=== PATIENT | male | born 1950 | race Caucasian/White ===

== ENCOUNTER 2016-10-04 11:28 | Emergency (ER) | payer OTHER, MEDICARE ==
[~2016-10-04] VITALS: Ht 180.3 cm; Wt 122.0 kg
[2016-10-04] MEDS ORDERED: NS 1,000 ML IV SCH (11:34)
[2016-10-04] MEDS ORDERED: COLA100C3 PO (12:01)
[2016-10-04] MEDS ORDERED: FLOM5CAP PO (12:01)
[2016-10-04] MEDS ORDERED: CLON1TAB PO (12:01)
[2016-10-04] MEDS ORDERED: ATOR1TAB18 PO (12:01)
[2016-10-04] MEDS ORDERED: ASPI1TAB PO (12:01)
[2016-10-04] MEDS ORDERED: CYMB60CA3 PO (12:01)
[2016-10-04] MEDS ORDERED: OMEP40CA2 PO (12:01)
[2016-10-04] MEDS ORDERED: METO-346 PO (12:01)
[2016-10-04] MEDS ORDERED: PRAZ1CAP PO (12:01)
[2016-10-04] MEDS ORDERED: MULT1CHW39 PO (12:01)
[2016-10-04] MEDS ORDERED: FERR325T3 PO (12:01)
[2016-10-04] MEDS ORDERED: RANI300T PO (12:01)
[2016-10-04] MEDS ORDERED: DICL1GEL3 TD (12:01)
[2016-10-04] MEDS ORDERED: GABA-282 PO (12:01)
[2016-10-04] MEDS ORDERED: CARA1TAB2 PO (12:01)
[2016-10-04] MEDS ORDERED: PLAV75TA38 PO (12:01)
[2016-10-04 12:09] LABS: BASO % 0.5 % (0.0-1.0); EOS # 0.2 K/mm3 (0.0-0.50); EOS % 1.8 % (0.0-3.0); LARGE UNSTAINED CELL # 0.1 K/mm3 (0.0-0.4); LARGE UNSTAINED CELL % 1.4 % (0.0-4.0); LYMPH % 21.9 % (24.0-44.0); MEAN CORPUSCULAR HEMOGLOBIN 27.5 pg (27.0-33.0); MEAN CORPUSCULAR HGB CONC 32.6 g/dl (32.0-36.5); MEAN CORPUSCULAR VOLUME 84.3 fl (80.0-96.0); MONO # 0.5 K/mm3 (0.0-0.8); MONO % 5.9 % (0.0-5.0); NEUTROPHILS % 68.7 % (36.0-66.0); PLATELET COUNT, AUTOMATED 227 k/mm3 (150-450); WHITE BLOOD COUNT 8.7 K/mm3 (4.0-10.0)
[2016-10-04 12:29] LABS: ALBUMIN 3.4 GM/DL (3.2-5.2); ALKALINE PHOSPHATASE 108 U/L (45-117); ALT/SGPT 29 U/L (12-78); ANION GAP 5 MEQ/L (8-16); AST/SGOT 14 U/L (15-37); BILIRUBIN,DIRECT 0.1 MG/DL (0.0-0.2); BILIRUBIN,TOTAL 0.6 MG/DL (0.2-1.0); BLOOD UREA NITROGEN 14 MG/DL (7-18); CALCIUM LEVEL 8.5 MG/DL (8.8-10.2); CARBON DIOXIDE LEVEL 28 MEQ/L (21-32); CHLORIDE LEVEL 107 MEQ/L (98-107); CREATININE FOR GFR 0.97 MG/DL (0.70-1.30); GLOMERULAR FILTRATION RATE > 60.0 (>49); GLUCOSE, FASTING 102 MG/DL (80-110); POTASSIUM SERUM 4.3 MEQ/L (3.5-5.1); SODIUM LEVEL 140 MEQ/L (136-145); TOTAL PROTEIN 6.8 GM/DL (6.4-8.2)
--- NOTE | 2016-10-04 12:47 | REP ---
ABDOMEN AND FLAT/UPRIGHT PA CHEST, THREE VIEWS: HISTORY: Abdominal pain. A small amount of air is present in small and large intestine. A single air fluid level is present. There are no dilated loops of intestine. There is no pneumoperitoneum. The lungs are clear. The heart is upper limits or normal in size. IMPRESSION: Nonspecific bowel gas pattern. Signed by Dominik Lechuga MD 10/04/2016 01:15 P
[2016-10-04] MEDS ORDERED: ISOVUE-370 76% 100ML VIAL (Q9967) As Ordered ONE (13:06)
--- NOTE | 2016-10-04 14:00 | REP ---
CT ABDOMEN AND PELVIS WITH IV BUT WITHOUT ORAL CONTRAST: HISTORY: Abdominal pain and distension left-sided. No comparison CT studies. CT contrast dose: 100 mL of Isovue [address] FINDINGS: Preliminary digital station mechanic radiograph is unremarkable. The lung bases are essentially clear. The liver and the spleen are normal in size homogeneous in texture. There is a tiny accessory splenule. The gallbladder and the pancreas are unremarkable. There are one or two tiny calcifications in the head of the pancreas. No adrenal lesion is seen on either side. The kidneys enhance symmetrically and are morphologically intact. No renal mass or cyst is seen. There is a tiny 2-3 mm calculus in the lower pole collecting system of the right kidney. There is a 2 mm calculus in the upper pole of the left kidney. No other calculus is seen. The abdominal aorta is tortuous and calcific but not aneurysmal. No periaortic adenopathy or mass is seen. There is diverticulosis affecting the left colon without CT evidence of diverticulitis. No abdominal wall defect is seen. The urinary bladder is intact. Prostate and seminal vesicles are unremarkable. No pelvic mass or adenopathy is seen. Bone window settings show no bony destructive lesion. IMPRESSION: 1. Bilateral intrarenal nephrolithiasis without evidence of hydronephrosis. No ureteral stone. 2. Left colonic diverticulosis without CT evidence of diverticulitis. 3. Otherwise, unremarkable CT study of the abdomen and pelvis. Signed by Sathish Lundberg MD 10/04/2016 02:53 P
[2016-10-04 14:42] VITALS: BP 128/73
--- NOTE | 2016-10-05 07:19 | ECGEPIP ---
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
== END 2016-10-04 14:43 | disposition home or self-care (01) ==
LOC: M ED 12:36
DX: G89.29 Other chronic pain (principal); R10.9 Unspecified abdominal pain; I51.9 Heart disease, unspecified; I10 Essential (primary) hypertension; E66.9 Obesity, unspecified; K57.32 Diverticulitis of large intestine without perforation or abscess without bleeding; M79.7 Fibromyalgia; G62.9 Polyneuropathy, unspecified; F43.10 Post-traumatic stress disorder, unspecified; M06.9 Rheumatoid arthritis, unspecified; R94.31 Abnormal electrocardiogram [ECG] [EKG]; Z79.82 Long term (current) use of aspirin; Z79.899 Other long term (current) drug therapy; Z88.5 Allergy status to narcotic agent; Z88.0 Allergy status to penicillin; Z88.8 Allergy status to other drugs, medicaments and biological substances
CPT/HCPCS: 36415; 74022; 74177; 80048; 80076; 82550; 82553; 83690; 84484; 85025; 93005; 99285; Q9967

== ENCOUNTER 2016-12-14 11:58 | Emergency (ER) | payer OTHER, MEDICARE ==
[~2016-12-14] VITALS: Ht 180.3 cm; Wt 120.4 kg
[~2016-12-14 11:58] MED LIST: ASPI1TAB PO; ATOR80TA59 PO; CARA1TAB6 PO; CLON1TAB PO; COLA100C5 PO; CYMB60CA3 PO; DICL1GEL3 TD; FERR325T3 PO; FLOM5CAP PO; GABA-282 PO; METO-346 PO; MULT1CHW39 PO; OMEP40CA2 PO; PLAV1TAB2 PO; PRAZ1CAP PO; RANI300T PO
[2016-12-14] MEDS ORDERED: ONDANSETRON 4MG/2ML VIAL (J2405) IV ONE (13:45)
[2016-12-14] MEDS ORDERED: NS 500 ML IV ONE (13:45)
[2016-12-14] MEDS ORDERED: KETOROLAC 30 MG/ML VIAL (J1885) IV ONE (13:45)
[2016-12-14 14:28] LABS: BASO % 0.7 % (0.0-1.0); EOS # 0.3 K/mm3 (0.0-0.50); EOS % 3.8 % (0.0-3.0); LARGE UNSTAINED CELL # 0.1 K/mm3 (0.0-0.4); LARGE UNSTAINED CELL % 1.7 % (0.0-4.0); LYMPH # 3.1 K/mm3 (1.5-4.5); LYMPH % 38.5 % (24.0-44.0); MEAN CORPUSCULAR HEMOGLOBIN 27.7 pg (27.0-33.0); MEAN CORPUSCULAR HGB CONC 32.6 g/dl (32.0-36.5); MONO # 0.4 K/mm3 (0.0-0.8); MONO % 5.5 % (0.0-5.0); NEUTROPHILS # 3.8 K/mm3 (1.8-7.7); NEUTROPHILS % 49.8 % (36.0-66.0); PLATELET COUNT, AUTOMATED 228 k/mm3 (150-450); RED CELL DISTRIBUTION WIDTH 14.2 % (11.5-14.5); WHITE BLOOD COUNT 7.6 K/mm3 (4.0-10.0)
--- NOTE | 2016-12-14 14:30 | REP ---
CT ABDOMEN AND PELVIS WITHOUT IV CONTRAST: CT abdomen and pelvis performed without oral or IV contrast. Sagittal and coronal reconstruction images are performed. Visualized lung bases demonstrate a few tiny calcified granulomas on the left. Liver, gallbladder, spleen, adrenals, pancreas, and kidneys are grossly unremarkable. There does appear to be a tiny 2 to 3 mm calculus in the lower pole of the right kidney. No ureteral or bladder calculus is seen and there is no hydroureteronephrosis. There are mild atherosclerotic calcifications of the abdominal aorta without aneurysm. There is no adenopathy. There is no free air or free fluid. There is no bowel wall thickening. There is sigmoid diverticulosis without evidence of acute diverticulitis. No pelvic mass is seen. There is a small left inguinal hernia containing fat. IMPRESSION: 2 to 3 mm right intrarenal calculus inferiorly. No ureteral calculus bilaterally. No hydroureteronephrosis. Sigmoid diverticulosis without acute diverticulitis. Small left inguinal hernia contains fat. Signed by Smith Hensley MD 12/14/2016 05:13 P
[2016-12-14 15:18] LABS: ALBUMIN 3.8 GM/DL (3.2-5.2); ALBUMIN/GLOBULIN RATIO 0.97 (1.00-1.93); ALKALINE PHOSPHATASE 101 U/L (45-117); ALT/SGPT 31 U/L (12-78); ANION GAP 3 MEQ/L (8-16); AST/SGOT 24 U/L (15-37); BILIRUBIN,DIRECT < 0.1 MG/DL (0.0-0.2); BILIRUBIN,TOTAL 0.4 MG/DL (0.2-1.0); BLOOD UREA NITROGEN 13 MG/DL (7-18); CALCIUM LEVEL 9.1 MG/DL (8.8-10.2); CARBON DIOXIDE LEVEL 31 MEQ/L (21-32); CHLORIDE LEVEL 108 MEQ/L (98-107); CREATININE FOR GFR 1.01 MG/DL (0.70-1.30); GLOMERULAR FILTRATION RATE > 60.0 (>49); GLUCOSE, FASTING 92 MG/DL (80-110); POTASSIUM SERUM 4.6 MEQ/L (3.5-5.1); SODIUM LEVEL 142 MEQ/L (136-145); TOTAL PROTEIN 7.7 GM/DL (6.4-8.2)
[2016-12-14 15:42] VITALS: BP 156/64
== END 2016-12-14 15:43 | disposition home or self-care (01) ==
LOC: M ED 11:58
DX: M54.5 Low back pain (principal); Z87.442 Personal history of urinary calculi; I25.2 Old myocardial infarction; E78.00 Pure hypercholesterolemia, unspecified; I10 Essential (primary) hypertension; N40.0 Benign prostatic hyperplasia without lower urinary tract symptoms; K57.30 Diverticulosis of large intestine without perforation or abscess without bleeding; M79.9 Soft tissue disorder, unspecified; F43.10 Post-traumatic stress disorder, unspecified; K40.90 Unilateral inguinal hernia, without obstruction or gangrene, not specified as recurrent; Z79.82 Long term (current) use of aspirin; Z79.899 Other long term (current) drug therapy; Z88.5 Allergy status to narcotic agent; Z88.0 Allergy status to penicillin
CPT/HCPCS: 74176; 80048; 80076; 81001; 83690; 85025; 96361; 96374; 96375; 99283; J1885; J2405

== ENCOUNTER 2017-04-09 09:57 | Inpatient (IN) | payer OTHER ==
[~2017-04-09] VITALS: Ht 180.3 cm; Wt 118.2 kg
[2017-04-09] MEDS ORDERED: QUET1TAB7 PO (10:12)
[2017-04-09] MEDS ORDERED: SYMB16INH INH (10:12)
[2017-04-09] MEDS ORDERED: METO25TA4 PO (10:12)
[2017-04-09] MEDS ORDERED: CRES10TA32 PO (10:12)
[2017-04-09] MEDS ORDERED: MIRT45TA3 PO (10:12)
[2017-04-09] MEDS ORDERED: methylPREDNISolone INJ 125 MG/2 ML VIAL (J2930) IV ONE (11:30)
[2017-04-09 11:31] LABS: BASO % 0.2 % (0.0-1.0); EOS # 0.1 10^3/uL (0.0-0.50); EOS % 2.1 % (0.0-3.0); IMMATURE GRANULOCYTE % 0.4 % (0-0); LYMPH # 1.3 10^3/uL (1.5-4.5); LYMPH % 23.7 % (24.0-44.0); MEAN CORPUSCULAR HEMOGLOBIN 26.9 pg (27.0-33.0); MEAN CORPUSCULAR HGB CONC 31.3 g/dl (32.0-36.5); MEAN CORPUSCULAR VOLUME 85.8 fl (80.0-96.0); MONO # 0.7 10^3/uL (0.0-0.8); MONO % 13.4 % (0.0-5.0); NEUTROPHILS # 3.2 10^3/uL (1.8-7.7); NEUTROPHILS % 60.2 % (36.0-66.0); PLATELET COUNT, AUTOMATED 191 10^3/uL (150-450); RED CELL DISTRIBUTION WIDTH 14.6 % (11.5-14.5); WHITE BLOOD COUNT 5.3 10^3/uL (4.0-10.0)
[2017-04-09 11:45] LABS: ANION GAP 7 MEQ/L (8-16); BLOOD UREA NITROGEN 13 MG/DL (7-18); CALCIUM LEVEL 8.6 MG/DL (8.8-10.2); CARBON DIOXIDE LEVEL 28 MEQ/L (21-32); CHLORIDE LEVEL 106 MEQ/L (98-107); GLOMERULAR FILTRATION RATE > 60.0 (>49); GLUCOSE, FASTING 106 MG/DL (80-110); POTASSIUM SERUM 4.4 MEQ/L (3.5-5.1); SODIUM LEVEL 141 MEQ/L (136-145)
[2017-04-09] MEDS: IPRATROPIUM 0.5MG/ALBUTEROL 2.5MG INH SOL UD 3ML (DUONEB)(J7620) NEB PRN ×4 (11:47→12:08)
[2017-04-09 11:57] LABS: ABG HCO3 22.1 MEQ/L (22.0-26.0); ABG PARTIAL PRESSURE CO2 32.5 mmHg (35.0-45.0); ABG PARTIAL PRESSURE O2 61.1 mmHg (75.0-100.0); ABG STANDARD HCO3 23.6 MEQ/L (22.0-26.0); ABG TOTAL CO2 23.1 MEQ/L (23.0-31.0); ABG pH (ARTERIAL) 7.451 UNITS (7.350-7.450)
--- NOTE | 2017-04-09 12:13 | REP ---
REASON FOR EXAM: Cough and dyspnea. COMPARISON: 10/04/2016. The technique utilized in obtaining the radiograph has magnified the cardiac silhouette and accentuated the interstitial markings. The cardiomediastinal silhouette is unchanged. Note is again made of cardiomegaly and previous median sternotomy. Mild fibrotic change again seen throughout the lung maldonado with basilar predominance status quo. No acute patchy parenchymal opacities or pleural effusions have developed on this limited portable exam. There is no change in the osseous structures. IMPRESSION: No significant change from the prior exam. No evidence of acute cardiopulmonary disease. Signed by Yair Diego DO 04/09/2017 02:17 P
[2017-04-09] MEDS ORDERED: ONDANSETRON 4 MG TAB (S0181) PO PRN (13:15)
[2017-04-09] MEDS ORDERED: IPRATROPIUM 0.5MG/ALBUTEROL 2.5MG INH SOL UD 3ML (DUONEB)(J7620) NEB PRN (13:15)
[2017-04-09] MEDS ORDERED: MIRT45TA PO (13:35)
[2017-04-09] MEDS ORDERED: CARA1TAB6 PO (13:35)
--- NOTE | 2017-04-09 14:09 | HPEPDOC ---
[facility] Medical History & Physical Date of Admission Apr 09, 2017 Other Provider PCP: Aashish Kaplan MD ([facility]) Attending Physician: HAN ROMERO MD History and Physical CHIEF COMPLAINT: SOB/COUGH HISTORY OF PRESENT ILLNESS: 67yo male with history of underlying lung disease and CAD s/p CABG two years ago. Presented to ED for worsening sob/DESOUZA and intermittent productive sputum/cough and abdominal and chest tightness related to wheezing and shortness of breath. Intermittent subjective fever and chills without rigors. Denies: substernal CP, palpitations, n/v/d, weight change, lower extremity swelling. Up to date on vaccinations (flu and pneumonia vax) and unaware of any sick contacts. Was seen in ED and given multiple nebs and Iv Solumedrol. Oxygen saturations in low 80s and continued respiratory discomfort and wheeze. Hospitalist contacted for admission. PAST MEDICAL HISTORY: COPD History of UT status post CABG Hypertension Hyperlipidemia Chronic low back pain GERD BPH Depression/Anxiety PAST SURGICAL HISTORY: CABG procedure 2 years ago SOCIAL HISTORY: , lives at home with his . Quit smoking and drinking alcohol 17 years ago. Denies alcohol use. Denies recent travel or sick contacts. FAMILY HISTORY: Noncontributory ALLERGIES: Please see below. REVIEW OF SYSTEMS: CONSTITUTIONAL: Subjective fevers, chills. Denies weight loss or change in appetite. HEENT: No headache, lightheadedness, blurred or loss of vision. No difficulty with speech or swallow. CARDIOVASCULAR: No substernal chest pain, palpitations, paroxysmal nocturnal dyspnea or lower extremity edema RESPIRATORY: Intermittent productive cough, wheeze, dyspnea on exertion. See HPI. Denies hemoptysis GENITOURINARY: No dysuria, frequency, or discharge MUSCULOSKELETAL: No bone, muscle or joint pain. GASTROINTESTINAL: No Nausea, vomiting, change in appetite. Bowel movements are regular without hematochezia or melena. No bladder or bowel incontinence. SKIN: No complaint of lesions, abrasions or rashes NEUROLOGICAL: No blurred vision, headaches, paraesthesias or paralysis PSYCHIATRIC: No depression, anxiety, audiovisual hallucinations. No suicidal ideations. ENDOCRINE: Denies history of diabetes or thyroid disorder. No history of endocrine abnormalities. HEMATOLOGIC/ONCOLOGIC: no bleeding or bruising disorders. No history of VTE. LYMPHATIC: No lumps, bumps or swelling of neck, axilla or groin. No night sweats or weight loss. HOME MEDICATIONS: Please see below. PHYSICAL EXAMINATION: VITAL SIGNS: Please see below. GENERAL: NAD, A&OX3, Pleasant HEENT: PERRLA, throat clear, neck supple, no JVD CARDIOVASCULAR: RRR RESPIRATORY: Diminished with expiratory wheezing, prolonged expiratory phase. ABDOMINAL: soft, NT/ND normoactive bowel sounds EXTREMITIES: no edema/no calf tenderness NEUROLOGICAL: CN'S II-XII grossly intact PSYCHOLOGICAL: negative LABORATORY DATA: See below. IMAGING: Portal chest x-ray:No significant change from the prior exam. No evidence of acute cardiopulmonary disease. Twelve-lead EKG: sinus rhythm, ventricular rate 86 bpm and no acute T wave abnormalities. MICROBIOLOGY: Please see below. IMPRESSION: 67-year-old gentleman with worsening symptoms of dyspnea on exertion , wheeze, productive sputum for approximately a week. ED evaluation and impression is that he is having acute respiratory failure with hypoxia with little response to nebulizers and Solu-Medrol. Will need admitted for further treatment. PROBLEM LIST: 1. Acute respiratory failure with hypoxia (possibly acute bronchitis/COPD exacerbation) 2. History of UT status post CABG 3. Hypertension 4. Hyperlipidemia 5. Chronic low back pain 6. GERD 7. BPH 8. Depression/Anxiety PLAN: Admit to [facility] remote telemetry. Continue with IV Solu-Medrol twice a day, duo nebs, and Zithromax. A cappella per respiratory therapy. Influenza A and B are negative. Blood cultures and sputum cultures are pending. Continue with home medications as outlined. DVT PROPHYLAXIS: Lovenox DISPOSITION: Anticipate that he'll be hospitalized greater than 2 midnights. Vital Signs Vital Signs Date Time Temp Pulse Resp B/P (MAP) Pulse Ox O2 Delivery O2 Flow Rate FiO2 04/09/17 12:28 20 135/64 (87) 04/09/17 12:27 102 93 04/09/17 10:37 Room Air 04/09/17 09:59 97.5 Laboratory Data Labs 24H Laboratory Tests 2 04/09/17 10:33: Immature Granulocyte % (Auto) 0.4H, White Blood Count 5.3, Red Blood Count 4.99 , Hemoglobin 13.4L, Hematocrit 42.8, Mean Corpuscular Volume 85.8, Mean Corpuscular Hemoglobin 26.9L, Mean Corpuscular Hemoglobin Concent 31.3L, Red Cell Distribution Width 14.6H, Platelet Count 191, Neutrophils (%) (Auto) 60.2, Lymphocytes (%) (Auto) 23.7L, Monocytes (%) (Auto) 13.4H, Eosinophils (%) (Auto ) 2.1, Basophils (%) (Auto) 0.2, Neutrophils # (Auto) 3.2, Lymphocytes # (Auto) 1.3L, Monocytes # (Auto) 0.7, Eosinophils # (Auto) 0.1, Basophils # (Auto) 0.0, Immature Granulocyte # (Auto) 0.0, Nucleated Red Blood Cells % (auto) 0.0, Anion Gap 7L, Glomerular Filtration Rate > 60.0, Lactic Acid Level 0.9, Blood Urea Nitrogen 13, Creatinine 1.10, Sodium Level 141, Potassium Level 4.4, Chloride Level 106, Carbon Dioxide Level 28, Calcium Level 8.6L, Total Creatine Kinase 213, Creatine Kinase MB 1.0, Creatine Kinase MB Relative Index 0.46, Troponin I < 0.02 04/09/17 11:31: Blood Gas Bicarbonate Standard 23.6, Arterial Blood pH 7.451H, Arterial Blood Partial Pressure CO2 32.5L, Arterial Blood Partial Pressure O2 61.1L, Arterial Blood Total CO2 23.1, Arterial Blood HCO3 22.1, Arterial Blood Base Excess -1.0 , Arterial Blood Oxygen Saturation 93.1L CBC/BMP Laboratory Tests 04/09/17 10:33 Red Blood Count 4.99, Mean Corpuscular Volume 85.8, Mean Corpuscular Hemoglobin 26.9 L, Mean Corpuscular Hemoglobin Concent 31.3 L, Red Cell Distribution Width 14.6 H, Neutrophils (%) (Auto) 60.2, Lymphocytes (%) (Auto) 23.7 L, Monocytes (% ) (Auto) 13.4 H, Eosinophils (%) (Auto) 2.1, Basophils (%) (Auto) 0.2, Neutrophils # (Auto) 3.2, Lymphocytes # (Auto) 1.3 L, Monocytes # (Auto) 0.7, Eosinophils # (Auto) 0.1, Basophils # (Auto) 0.0, Calcium Level 8.6 L, Total Creatine Kinase 213 Microbiology Microbiology 04/09/17 Blood Culture, Received Pending 04/09/17 Blood Culture, Received Pending 04/09/17 Gram Stain, Received Pending 04/09/17 Sputum Culture, Received Pending 04/09/17 Influenza Virus Type A Antigen - Final, Complete 04/09/17 Influenza Virus Type B Antigen - Final, Complete Home Medications Scheduled (Multivitamin Adult) 1 Chw Chw, 1 TAB PO BID Aspirin (Aspirin 81) 81 Mg Tab, 81 MG PO DAILY Budesonide/Formoterol (Symbicort 160-4.5 Mcg/Act) 60 Puff/Inhaler Aers, 2 PUFF INH BID Docusate Sodium (Colace) 100 Mg Cap, 100 MG PO BID Duloxetine Hcl (Cymbalta) 60 Mg Cap, 60 MG PO DAILY TAKES AT NOON Ferrous Sulfate (Ferrous Sulfate) 325 Mg Tab, 325 MG PO DAILY TAKES AT NOON Metoprolol Tartrate (Metoprolol Tartrate) 25 Mg Tab, 25 MG PO BID Mirtazapine (Mirtazapine) 45 Mg Tab, 45 MG PO QHS Prazosin Hcl (Prazosin HCl) 1 Mg Cap, 1 MG PO QHS Quetiapine Fumerate (Quetiapine Fumarate) 25 Mg Tab, 25 MG PO TID Ranitidine HCl (Ranitidine HCl) 300 Mg Tab, 1 TAB PO QHS Rosuvastatin (Crestor) 10 Mg Tab, 40 MG PO DAILY TAKES AT NOON Sucralfate (Carafate) 1 Gm Tab, 1 GM PO TID Tamsulosin Hydrochloride (Flomax) 0.4 Mg Cap, 0.4 MG PO DAILY TAKES AT NOON Scheduled PRN Clonazepam (Clonazepam) 1 Mg Tab, 1 MG PO BID PRN for ANXIETY/AGITATION Gabapentin (Gabapentin) 300 Mg Cap, 300 MG PO QID PRN for PAIN Allergies Coded Allergies: Penicillins (Verified Allergy, Severe, facial swelling, cant breath, ) Propoxyphene (Verified Allergy, Severe, cant breath face swelling, 10/04/16) Hydrocodone (Verified Allergy, Unknown, flushed, 10/04/16) ROSALBA MAIER DO Apr 09, 2017 14:09
[2017-04-09] MEDS ORDERED: GABAPENTIN 300 MG CAP PO PRN (14:15)
[2017-04-09] MEDS ORDERED: clonazePAM 1 MG TAB PO PRN (14:15)
[2017-04-09] MEDS: IPRATROPIUM 0.5MG/ALBUTEROL 2.5MG INH SOL UD 3ML (DUONEB)(J7620) NEB SCH (14:30)
[2017-04-09 14:45] VITALS: BP 137/85
[2017-04-09] MEDS ORDERED: AZITHROMYCIN INJ 500 MG, VIAL MATE ADAPTER 1 EACH in D5W 250 ML IV SCH (15:00)
[2017-04-09] MEDS: QUEtiapine FUMARATE 25 MG TAB PO SCH ×2 (16:13→20:12)
[2017-04-09] MEDS: SUCRALFATE 1 GM TAB PO SCH ×2 (16:13→20:12)
[2017-04-09] MEDS: ACETAMINOPHEN TAB 650MG DOSE (2X325MG) PO PRN (17:58)
--- NOTE | 2017-04-09 18:10 | ECGEPIP ---
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
[2017-04-09] MEDS: PRAZOSIN 1 MG CAP PO SCH (20:11)
[2017-04-09] MEDS: DOCUSATE SODIUM 100 MG CAP PO SCH (20:12)
[2017-04-09] MEDS: MIRTAZAPINE 15 MG TAB PO SCH (20:12)
[2017-04-09] MEDS: FAMOTIDINE 20 MG TAB PO SCH (20:12)
[2017-04-09] MEDS: METOPROLOL TART 25 MG TABLET PO SCH (20:13)
[2017-04-09] MEDS: SYMBICORT 160/4.5MCG INHALER 6GM INH SCH (21:00)
[2017-04-09 22:00] VITALS: BP 133/83
[2017-04-10] MEDS ORDERED: methylPREDNISolone INJ 125 MG/2 ML VIAL (J2930) IV SCH
[2017-04-10] MEDS: IPRATROPIUM 0.5MG/ALBUTEROL 2.5MG INH SOL UD 3ML (DUONEB)(J7620) NEB SCH ×3 (00:18→15:46)
[2017-04-10 05:43] LABS: MEAN CORPUSCULAR HEMOGLOBIN 26.9 pg (27.0-33.0); MEAN CORPUSCULAR HGB CONC 31.9 g/dl (32.0-36.5); MEAN CORPUSCULAR VOLUME 84.3 fl (80.0-96.0); PLATELET COUNT, AUTOMATED 204 10^3/uL (150-450); RED CELL DISTRIBUTION WIDTH 14.5 % (11.5-14.5); WHITE BLOOD COUNT 5.5 10^3/uL (4.0-10.0)
[2017-04-10 05:57] LABS: ANION GAP 10 MEQ/L (8-16); BLOOD UREA NITROGEN 18 MG/DL (7-18); CALCIUM LEVEL 8.8 MG/DL (8.8-10.2); CARBON DIOXIDE LEVEL 23 MEQ/L (21-32); CHLORIDE LEVEL 110 MEQ/L (98-107); CREATININE FOR GFR 1.18 MG/DL (0.70-1.30); GLOMERULAR FILTRATION RATE > 60.0 (>49); GLUCOSE, FASTING 180 MG/DL (80-110); POTASSIUM SERUM 4.2 MEQ/L (3.5-5.1); SODIUM LEVEL 143 MEQ/L (136-145)
[2017-04-10 06:00] VITALS: BP 131/67
[2017-04-10] MEDS: SYMBICORT 160/4.5MCG INHALER 6GM INH SCH ×2 (07:11→19:53)
[2017-04-10] MEDS: QUEtiapine FUMARATE 25 MG TAB PO SCH ×3 (08:54→21:13)
[2017-04-10] MEDS: SUCRALFATE 1 GM TAB PO SCH ×3 (08:54→21:12)
[2017-04-10] MEDS: ROSUVASTATIN 10 MG TAB (CRESTOR) PO SCH (08:54)
[2017-04-10] MEDS: ASPIRIN 81 MG ENTERIC TAB PO SCH (08:54)
[2017-04-10] MEDS: TAMSULOSIN 0.4 MG CAP PO SCH (08:55)
[2017-04-10] MEDS: DULoxetine 30 MG CAP (CYMBALTA) PO SCH (08:55)
[2017-04-10] MEDS: FERROUS SULFATE 325MG TAB PO SCH (08:55)
[2017-04-10] MEDS: DOCUSATE SODIUM 100 MG CAP PO SCH ×2 (08:55→21:12)
[2017-04-10] MEDS: METOPROLOL TART 25 MG TABLET PO SCH ×2 (08:57→21:12)
[2017-04-10] MEDS: ENOXAPARIN 40 MG/0.4 ML SYRINGE (J1650) SC SCH (08:58)
[2017-04-10] MEDS: ACETAMINOPHEN TAB 650MG DOSE (2X325MG) PO PRN (10:39)
[2017-04-10] MEDS: methylPREDNISolone INJ 125 MG/2 ML VIAL (J2930) IV SCH ×2 (12:08→23:42)
[2017-04-10 14:00] VITALS: BP 141/67
--- NOTE | 2017-04-10 14:20 | IPNPDOC ---
Text Note Date of Service The patient was seen on 04/10/17. NOTE Hospitalist Progress Note Subjective: Patient reports that he is feeling better this morning compared to yesterday, although he is not completely back to his baseline. He agrees that perhaps at least one more day of hospitalization would be ideal. He does continue to be somewhat short of breath, he denies chest heaviness or chest pressure or chest pain. He denies any fevers, chills, night sweats. The remainder of his review of systems is entirely negative. Objective: General: Awake, alert, oriented. He is sitting upright in the chair. He is in no acute distress at this time. HEENT: Head normocephalic, atraumatic, sclera are nonicteric. Hearing is grossly intact to conversation. Respiratory: Diminished throughout, however I do not appreciate any wheezes or rales Cardiovascular: Regular rate and rhythm, with no rubs, gallops, or murmur. Abdomen: Soft, nontender, nondistended, no hepatosplenomegaly appreciated. Bowel sounds present. Extremities: 2+ pulses in the radial and dorsalis pedis bilaterally. No evidence of clubbing or cyanosis. Assessment/Plan: 1. Acute respiratory failure with hypoxia Resolved. He was wearing his home CPAP during the night. He is now saturating well on room air. 2. COPD exacerbation Will decrease his steroids at this time to 40 mg every 12 hours. Given that he does not have fevers nor does he have a white count, we can discontinue his antibiotics at this time. We'll continue with DuoNeb's scheduled and as needed 3. Hypertension Within acceptable limits, continue with home dose of metoprolol tartrate. 4. Hyperlipidemia Continue home dose of rosuvastatin 5. Chronic low back pain Continue home dose of duloxetine 6. GERD Continue home dose of ranitidine 7. BPH Continue home dose of tamsulosin 8. Depression/anxiety Continue home dose of Seroquel, mirtazapine, clonazepam, duloxetine, and prazosin 9. DVT prophylaxis Lovenox My preceptor for this patient encounter was physically present in the building during the encounter and was fully available. As needed, all aspects of the patient interview, examination, medical decision making process, and medical care plan development were reviewed and approved by the preceptor. Preceptor is aware and concurs with the plan as stated in the body of this note and will attest to such by his/her cosignature. VS,Fishbone, I+O VS, Fishbone, I+O Laboratory Tests 04/10/17 05:34 Red Blood Count 4.79, Mean Corpuscular Volume 84.3, Mean Corpuscular Hemoglobin 26.9 L, Mean Corpuscular Hemoglobin Concent 31.9 L, Red Cell Distribution Width 14.5, Calcium Level 8.8 Vital Signs Date Time Temp Pulse Resp B/P (MAP) Pulse Ox O2 Delivery O2 Flow Rate FiO2 04/10/17 09:00 Room Air 96 04/10/17 08:57 108 128/86 04/10/17 06:00 97.3 20 94 I&O- Last 24 Hours up to 6 AM 04/11/17 06:00 Intake Total 250 ml Output Total 100 ml Balance 150 ml GME ATTESTATION GME ATTESTATION My faculty preceptor for this patient encounter was physically present during the encounter and was fully available. All aspects of the patient interview, examination, medical decision making process, and medical care plan development were reviewed and approved by the faculty preceptor. The faculty preceptor is aware and concurs with the plan as stated in the body of this note and will attest to such by his/her cosignature. ATTENDING NOTE I have both independently examined this patient as well as reviewed the note. I have discussed in detail with the resident the findings and plan of treatment as documented in the residents note. I will continue to follow the patient and offer further guidance to the patients care as necessary during this hospital stay. ROSELIA Perez MD, DO Apr 10, 2017 14:20 HAN ROMERO MD Apr 14, 2017 09:33
[2017-04-10] MEDS: PRAZOSIN 1 MG CAP PO SCH (21:12)
[2017-04-10] MEDS: FAMOTIDINE 20 MG TAB PO SCH (21:13)
[2017-04-10] MEDS: MIRTAZAPINE 15 MG TAB PO SCH (21:13)
[2017-04-10 22:00] VITALS: BP 159/72
[2017-04-11] MEDS: IPRATROPIUM 0.5MG/ALBUTEROL 2.5MG INH SOL UD 3ML (DUONEB)(J7620) NEB SCH ×4 (00:02→23:36)
[2017-04-11 06:00] VITALS: BP 144/76
[2017-04-11 07:17] LABS: MEAN CORPUSCULAR HEMOGLOBIN 26.9 pg (27.0-33.0); MEAN CORPUSCULAR HGB CONC 31.7 g/dl (32.0-36.5); MEAN CORPUSCULAR VOLUME 84.8 fl (80.0-96.0); PLATELET COUNT, AUTOMATED 203 10^3/uL (150-450); RED CELL DISTRIBUTION WIDTH 14.6 % (11.5-14.5); WHITE BLOOD COUNT 6.3 10^3/uL (4.0-10.0)
[2017-04-11 07:29] LABS: ANION GAP 9 MEQ/L (8-16); BLOOD UREA NITROGEN 24 MG/DL (7-18); CALCIUM LEVEL 8.8 MG/DL (8.8-10.2); CARBON DIOXIDE LEVEL 25 MEQ/L (21-32); CHLORIDE LEVEL 108 MEQ/L (98-107); CREATININE FOR GFR 1.03 MG/DL (0.70-1.30); GLOMERULAR FILTRATION RATE > 60.0 (>49); GLUCOSE, FASTING 142 MG/DL (80-110); POTASSIUM SERUM 4.6 MEQ/L (3.5-5.1); SODIUM LEVEL 142 MEQ/L (136-145)
[2017-04-11] MEDS: SYMBICORT 160/4.5MCG INHALER 6GM INH SCH ×2 (07:29→20:10)
[2017-04-11] MEDS ORDERED: VANCOMYCIN HCL 500 MG in D5W MINI-BAG PLUS 100 ML IV ONE (08:00)
[2017-04-11] MEDS: SUCRALFATE 1 GM TAB PO SCH ×3 (08:29→21:00)
[2017-04-11] MEDS: ENOXAPARIN 40 MG/0.4 ML SYRINGE (J1650) SC SCH (08:29)
[2017-04-11] MEDS: DOCUSATE SODIUM 100 MG CAP PO SCH ×2 (08:29→20:45)
[2017-04-11] MEDS: ASPIRIN 81 MG ENTERIC TAB PO SCH (08:29)
[2017-04-11] MEDS: DULoxetine 30 MG CAP (CYMBALTA) PO SCH (08:29)
[2017-04-11] MEDS: ROSUVASTATIN 10 MG TAB (CRESTOR) PO SCH (08:29)
[2017-04-11] MEDS: METOPROLOL TART 25 MG TABLET PO SCH ×2 (08:29→20:46)
[2017-04-11] MEDS: QUEtiapine FUMARATE 25 MG TAB PO SCH ×3 (08:29→20:46)
[2017-04-11] MEDS: FERROUS SULFATE 325MG TAB PO SCH (08:29)
[2017-04-11] MEDS: TAMSULOSIN 0.4 MG CAP PO SCH (08:29)
--- NOTE | 2017-04-11 08:35 | PHACANCOPD ---
PHARMACY VANCOMYCIN DOSING Pt Demographics Demographics Patient Age:67 , Weight:118.200 , Gender: male Adjusted Body Weight Date: 04/11/17, Adjusted Body Weight: Kg Events Past 24 Hours Events Past 24 Hours: NO: Dialysis, Diuretic Therapy, Change in CrCl, Fever, Elevation in WBC, Pending Diagnostics, Pending Procedures, Other Vancomycin Vancomycin indication: BACTEREMIA Vancomycin Target Ranges: 10-20 mcg/ml Vancomycin Load Y/N: Yes Load Dose Date Time Vancomycin Load Dose: 1500MG Date: 04/11/17 Time: 0800 Vancomycin Dose Date: 04/11/17. Current Vancomycin Dose: [1GM IV Q8H @ 0900] Intermittent Dosing?: No Labs Labs Item Value Date Time Creatinine 1.10 MG/DL 04/09/17 1033 Creatinine 1.18 MG/DL 04/10/17 0534 Creatinine 1.03 MG/DL 04/11/17 0649 White Blood Count 5.3 10^3/uL 04/09/17 1033 White Blood Count 5.5 10^3/uL 04/10/17 0534 White Blood Count 6.3 10^3/uL 04/11/17 0649 Micro Microbiology 04/11/17 Blood Culture, Received Pending 04/09/17 Blood Culture - Preliminary, Resulted No growth after 24 hours . All specim... 04/09/17 Blood Culture - Preliminary, Resulted 04/09/17 Gram Stain - Final, Resulted 04/09/17 Sputum Culture, Resulted Pending 04/09/17 Influenza Virus Type A Antigen - Final, Complete 04/09/17 Influenza Virus Type B Antigen - Final, Complete Creatinine Clearance Date:04/11/17. Creatinine Clearance: [74MLS/MIN]. Pending Labs VANCO TROUGH 04/12/17 @ 0800 Assessment and Plan Maintaining Current Dose?: Yes Reason for dose change: No Dose Change Pharmacist Note Pharmacist Note Date: 04/11/17. Pharmacist note: Vanco 1.5 gram loading dose was initiated @ 0800 followed by 1g iv q8 hours for the treatment of bacteremia. Preliminary blood culture produced gram positive cocci in clusters. Trough is scheduled to be drawn prior to the 4th dose (04/12/17 @ 0800). Continue to monitor renal function and adjust dose as needed. RUPERT MUHAMMAD [facility]ARMAC[facility] Apr 11, 2017 08:35
[2017-04-11] MEDS: VANCOMYCIN HCL 1,000 MG, VIAL MATE ADAPTER 1 EACH in D5W 250 ML IV SCH ×2 (10:20→17:22)
[2017-04-11] MEDS: methylPREDNISolone INJ 125 MG/2 ML VIAL (J2930) IV SCH (12:53)
--- NOTE | 2017-04-11 13:56 | IPNPDOC ---
Text Note Date of Service The patient was seen on 04/11/17. NOTE Hospitalist Progress Note Subjective: The patient has been up and walking about this morning, he still has some shortness of breath. He does continue to cough, but is unable to expectorate the sputum, therefore he just swallows it. He denies any fevers, chills, nausea , vomiting, chest pain. The remainder of his review of systems is negative. He is accompanied in the room by his current today. Objective: General: Awake, alert, oriented. He is in no acute distress at this time. HEENT: Head normocephalic, atraumatic, sclera are nonicteric. Hearing is grossly intact to conversation. Respiratory: Much better air movement today, although he does have have a minimal amount of expiratory wheezing today Cardiovascular: Regular rate and rhythm, with no rubs, gallops, or murmur. Abdomen: Soft, nontender, nondistended, no hepatosplenomegaly appreciated. Bowel sounds present. Extremities: 2+ pulses in the radial and dorsalis pedis bilaterally. No evidence of clubbing or cyanosis. Assessment/Plan: Gram-positive bacteremia. One of his and tubes of blood as a preliminary report of gram-positive bacteremia, the other one is still pending. He was empirically started on IV vancomycin today. We will keep him in the hospital for at least an additional 24 hours until final results from both tubes are obtained. Acute respiratory failure with hypoxia Resolved. He was wearing his home CPAP during the night. COPD exacerbation Will decrease his steroids at this time to 40 mg Daily, and switched from IV to oral. We'll continue with DuoNeb's scheduled and as needed Hypertension Within acceptable limits, continue with home dose of metoprolol tartrate. Hyperlipidemia Continue home dose of rosuvastatin Chronic low back pain Continue home dose of duloxetine GERD Continue home dose of ranitidine BPH Continue home dose of tamsulosin Depression/anxiety Continue home dose of Seroquel, mirtazapine, clonazepam, duloxetine, and prazosin DVT prophylaxis Lovenox My preceptor for this patient encounter was physically present in the building during the encounter and was fully available. As needed, all aspects of the patient interview, examination, medical decision making process, and medical care plan development were reviewed and approved by the preceptor. Preceptor is aware and concurs with the plan as stated in the body of this note and will attest to such by his/her cosignature. VS,Antoniobone, I+O VS, Fishbone, I+O Laboratory Tests 04/11/17 06:49 Red Blood Count 4.87, Mean Corpuscular Volume 84.8, Mean Corpuscular Hemoglobin 26.9 L, Mean Corpuscular Hemoglobin Concent 31.7 L, Red Cell Distribution Width 14.6 H, Calcium Level 8.8 Vital Signs Date Time Temp Pulse Resp B/P (MAP) Pulse Ox O2 Delivery O2 Flow Rate FiO2 04/11/17 08:29 81 144/76 04/11/17 06:00 97.3 20 94 Room Air 04/10/17 09:00 96 I&O- Last 24 Hours up to 6 AM 04/12/17 06:00 Intake Total 250 ml Output Total 100 ml Balance 150 ml ROSELIA ANTHONY DO Apr 11, 2017 13:56
[2017-04-11 14:00] VITALS: BP 146/80
[2017-04-11] MEDS: FAMOTIDINE 20 MG TAB PO SCH (20:45)
[2017-04-11] MEDS: PRAZOSIN 1 MG CAP PO SCH (20:46)
[2017-04-11] MEDS: MIRTAZAPINE 15 MG TAB PO SCH (20:46)
[2017-04-11 22:00] VITALS: BP 142/69
[2017-04-12] MEDS: VANCOMYCIN HCL 1,000 MG, VIAL MATE ADAPTER 1 EACH in D5W 250 ML IV SCH ×2 (01:09→08:38)
[2017-04-12 06:00] VITALS: BP 159/80
[2017-04-12] MEDS: IPRATROPIUM 0.5MG/ALBUTEROL 2.5MG INH SOL UD 3ML (DUONEB)(J7620) NEB SCH (07:44)
[2017-04-12] MEDS: SYMBICORT 160/4.5MCG INHALER 6GM INH SCH (07:44)
[2017-04-12 08:11] LABS: MEAN CORPUSCULAR HEMOGLOBIN 26.7 pg (27.0-33.0); MEAN CORPUSCULAR HGB CONC 31.6 g/dl (32.0-36.5); MEAN CORPUSCULAR VOLUME 84.5 fl (80.0-96.0); PLATELET COUNT, AUTOMATED 216 10^3/uL (150-450); RED CELL DISTRIBUTION WIDTH 14.4 % (11.5-14.5); WHITE BLOOD COUNT 7.8 10^3/uL (4.0-10.0)
[2017-04-12 08:36] LABS: ANION GAP 8 MEQ/L (8-16); BLOOD UREA NITROGEN 23 MG/DL (7-18); CALCIUM LEVEL 8.4 MG/DL (8.8-10.2); CARBON DIOXIDE LEVEL 27 MEQ/L (21-32); CHLORIDE LEVEL 105 MEQ/L (98-107); CREATININE FOR GFR 1.04 MG/DL (0.70-1.30); GLOMERULAR FILTRATION RATE > 60.0 (>49); GLUCOSE, FASTING 90 MG/DL (80-110); SODIUM LEVEL 140 MEQ/L (136-145)
[2017-04-12] MEDS: ENOXAPARIN 40 MG/0.4 ML SYRINGE (J1650) SC SCH (08:38)
[2017-04-12] MEDS: SUCRALFATE 1 GM TAB PO SCH (08:38)
[2017-04-12] MEDS: ASPIRIN 81 MG ENTERIC TAB PO SCH (08:38)
[2017-04-12] MEDS: QUEtiapine FUMARATE 25 MG TAB PO SCH (08:38)
[2017-04-12] MEDS: DULoxetine 30 MG CAP (CYMBALTA) PO SCH (08:38)
[2017-04-12] MEDS: FERROUS SULFATE 325MG TAB PO SCH (08:38)
[2017-04-12] MEDS: DOCUSATE SODIUM 100 MG CAP PO SCH (08:38)
[2017-04-12 08:39] VITALS: BP 159/80
[2017-04-12] MEDS: ROSUVASTATIN 10 MG TAB (CRESTOR) PO SCH (08:39)
[2017-04-12] MEDS: TAMSULOSIN 0.4 MG CAP PO SCH (08:39)
[2017-04-12] MEDS: METOPROLOL TART 25 MG TABLET PO SCH (08:39)
[2017-04-12] MEDS ORDERED: PRED10TA2 PO (08:59)
[2017-04-12] MEDS ORDERED: predniSONE 20 MG TAB PO SCH (09:00)
--- NOTE | 2017-04-12 21:57 | DS.PDOC ---
Discharge Summary General Date of Admission Apr 09, 2017 at 13:13 Date of Discharge 04/12/2017 Discharge Summary PRIMARY CARE PHYSICIAN: Dr. Kaplan in the [facility] ATTENDING AT TIME OF DISCHARGE: Dr. Garcia DISCHARGE DIAGNOS(E)S: 1. Acute respiratory failure with hypoxia 2. COPD exacerbation 3. Hypertension 4. Hyperlipidemia 5. Chronic low back pain 6. GERD 7. Benign prostatic hypertrophy 8. Depression/anxiety HPI & HOSPITAL COURSE: Mr. Goodrich is a 67-year-old male who presented to the emergency department for worsening shortness of breath and dyspnea on exertion with intermittent productive cough, as well as chest tightness and wheezing. He was treated with [id number] and as needed nebulizers, steroids, and he was treated with a dose of azithromycin, however this was discontinued given the fact that he had no leukocytosis or fever and he showed remarkable improvement. One of his blood cultures did come back with a preliminary positive for gram- positive cocci in clusters, therefore he was started empirically on vancomycin IV, however this did come back as a contaminant of staph hominis, and the other tube showed no growth. Steroids were tapered throughout his stay. On today the day of discharge she is feeling significantly better, his wheezing is almost entirely resolved, and he has been walking about the floor with only minimal exertional dyspnea, and not at rest. He does continue to cough, however it is nonproductive, and it is significantly improved from admission. Remainder of his review of systems is negative. He does appear to be stable for discharge at this time. PHYSICAL EXAMINATION ON DISCHARGE: GENERAL: Awake, alert, oriented 3. He is in no acute distress. He is not using any accessory muscles for respiration. CARDIOVASCULAR EXAMINATION: Regular rate and rhythm, with no rubs, gallops, or murmur. RESPIRATORY EXAMINATION: Clear to auscultation bilaterally with no wheezes, rales, or rhonchi. ABDOMINAL EXAMINATION: Soft, nontender, nondistended. Bowel sounds present. EXTREMITIES: No clubbing or edema noted. 2+ pulses in the radial bilaterally. DISPOSITION: Home DISCHARGE INSTRUCTIONS: Follow-up with primary care provider Dr. Kaplan at the [facility] in [place] within the next 7-10 days. If symptoms return, or if you experience worsening of your symptoms, please call your doctor or return to the emergency department. DISCHARGE MEDICATIONS: He has been discharged home with a steroid taper 40 mg 3 days, 30 mg 3 days, 20 mg 3 days, 10 mg 3 days. Stop. Otherwise no changes to his home indications ITEMS THAT NEED OUTPATIENT FOLLOWUP: No labs or studies are pending at this time. My preceptor for this patient encounter was physically present in the building during the encounter and was fully available. As needed, all aspects of the patient interview, examination, medical decision making process, and medical care plan development were reviewed and approved by the preceptor. Preceptor is aware and concurs with the plan as stated in the body of this note and will attest to such by his/her cosignature. Vital Signs/I&Os Vital Signs Date Time Temp Pulse Resp B/P (MAP) Pulse Ox O2 Delivery O2 Flow Rate FiO2 04/12/17 10:30 Room Air 04/12/17 08:39 91 159/80 04/12/17 06:00 97.1 20 91 04/10/17 09:00 96 I&O- Last 24 Hours up to 6 AM 04/13/17 06:00 Intake Total 840 ml Output Total 475 ml Balance 365 ml Laboratory Data Labs 24H Laboratory Tests 2 04/12/17 08:00: Nucleated Red Blood Cells % (auto) 0.0, Anion Gap 8, Glomerular Filtration Rate > 60.0, Blood Urea Nitrogen 23H, Creatinine 1.04, Sodium Level 140, Potassium Level 4.0, Chloride Level 105, Carbon Dioxide Level 27, Calcium Level 8.4L, Vancomycin Level Trough 13.6 CBC/BMP Laboratory Tests 04/12/17 08:00 Red Blood Count 5.09, Mean Corpuscular Volume 84.5, Mean Corpuscular Hemoglobin 26.7 L, Mean Corpuscular Hemoglobin Concent 31.6 L, Red Cell Distribution Width 14.4, Calcium Level 8.4 L Microbiology Microbiology 04/11/17 Blood Culture - Preliminary, Resulted No growth after 24 hours . All specim... 04/09/17 Blood Culture - Preliminary, Resulted No Growth after 72 hours. All specime... 04/09/17 Blood Culture - Final, Complete Staphylococcus Hominis Ssp Sebas 04/11/17 MRSA Screen - Final, Complete 04/09/17 Gram Stain - Final, Complete 04/09/17 Sputum Culture - Final, Complete Haemophilus Parahaemolyticus 04/09/17 Influenza Virus Type A Antigen - Final, Complete 04/09/17 Influenza Virus Type B Antigen - Final, Complete Discharge Medications Scheduled (Multivitamin Adult) 1 Chw Chw, 1 TAB PO BID, (Reported) Aspirin (Aspirin 81) 81 Mg Tab, 81 MG PO DAILY, (Reported) Budesonide/Formoterol (Symbicort 160-4.5 Mcg/Act) 60 Puff/Inhaler Aers, 2 PUFF INH BID, (Reported) Docusate Sodium (Colace) 100 Mg Cap, 100 MG PO BID, (Reported) Duloxetine Hcl (Cymbalta) 60 Mg Cap, 60 MG PO DAILY, (Reported) TAKES AT NOON Ferrous Sulfate (Ferrous Sulfate) 325 Mg Tab, 325 MG PO DAILY, (Reported) TAKES AT NOON Metoprolol Tartrate (Metoprolol Tartrate) 25 Mg Tab, 25 MG PO BID, (Reported) Mirtazapine (Mirtazapine) 45 Mg Tab, 45 MG PO QHS, (Reported) Prazosin Hcl (Prazosin HCl) 1 Mg Cap, 1 MG PO QHS, (Reported) Prednisone (Prednisone) 10 Mg Tab, 10 MG PO TAPER Take 4 tabs daily x 3 days, then 3 tabs daily x 3 days, then 2 tabs daily x 3 days, then 1 tab daily x 3 days and stop Quetiapine Fumerate (Quetiapine Fumarate) 25 Mg Tab, 25 MG PO TID, (Reported) Ranitidine HCl (Ranitidine HCl) 300 Mg Tab, 1 TAB PO QHS, (Reported) Rosuvastatin (Crestor) 10 Mg Tab, 40 MG PO DAILY, (Reported) TAKES AT NOON Sucralfate (Carafate) 1 Gm Tab, 1 GM PO TID, (Reported) Tamsulosin Hydrochloride (Flomax) 0.4 Mg Cap, 0.4 MG PO DAILY, (Reported) TAKES AT NOON Scheduled PRN Clonazepam (Clonazepam) 1 Mg Tab, 1 MG PO BID PRN for ANXIETY/AGITATION, ( Reported) Gabapentin (Gabapentin) 300 Mg Cap, 300 MG PO QID PRN for PAIN, (Reported) Allergies Coded Allergies: Penicillins (Verified Allergy, Severe, facial swelling, cant breath, ) Propoxyphene (Verified Allergy, Severe, cant breath face swelling, 10/04/16) Hydrocodone (Verified Allergy, Unknown, flushed, 10/04/16) ROSELIA ANTHONY DO Apr 12, 2017 21:57
== END 2017-04-12 13:24 | disposition home or self-care (01) | DRG 189 ==
LOC: M ED 09:57 → M ED INP 13:13 → M MSPAV 14:41
PROVIDERS: ADMIT Hospitalist; ATTEND Internal Medicine
DX: J96.01 Acute respiratory failure with hypoxia (principal); J44.1 Chronic obstructive pulmonary disease with (acute) exacerbation; M54.5 Low back pain; I25.2 Old myocardial infarction; I10 Essential (primary) hypertension; N40.0 Benign prostatic hyperplasia without lower urinary tract symptoms; Z79.82 Long term (current) use of aspirin; Z79.899 Other long term (current) drug therapy; Z88.5 Allergy status to narcotic agent; Z88.0 Allergy status to penicillin; E78.5 Hyperlipidemia, unspecified; K21.9 Gastro-esophageal reflux disease without esophagitis; F32.9 Major depressive disorder, single episode, unspecified; F41.9 Anxiety disorder, unspecified; Z87.891 Personal history of nicotine dependence

== ENCOUNTER → 2020-03-25 | Outpatient (CLI) | payer OTHER ==
[~2020-03-25] MED LIST changes: -ASPI1TAB PO; +ASPI81TA26 PO; -CLON1TAB PO; +CLON1TAB8 PO; +CRES10TA PO; +FLOM0.4C39 PO; -FLOM5CAP PO; -GABA-282 PO; +GABA-843 PO; +LYRI150C PO; +METO25TA4 PO; +MIRT1TAB17 PO; +MIRT45TA4 PO; -MULT1CHW39 PO; +MULT200T7 PO; -OMEP40CA2 PO; +OMEP40CA97 PO; +PRED10TA2 PO; +QUET1TAB7 PO; +RANI15TA PO; +SYMB16INH INH
== END ==
LOC: M LABSMTC 10:17
PROVIDERS: ATTEND Anesthesiology
DX: Z01.812 Encounter for preprocedural laboratory examination (principal); Z20.828 Contact with and (suspected) exposure to other viral communicable diseases

== ENCOUNTER 2020-03-30 07:13 | Day surgery (SDC) | payer OTHER ==
[~2020-03-30] VITALS: Ht 175.3 cm; Wt 120.7 kg
[~2020-03-30 07:13] MED LIST changes: +propofoL 500 MG/50 ML VIAL As Ordered ONE
[2020-03-30] MEDS ORDERED: fentaNYL 100 MCG/2 ML INJECTION (J3010) As Ordered ONE (07:14)
[2020-03-30] MEDS ORDERED: ONDANSETRON 4MG/2ML VIAL As Ordered ONE (07:15)
[2020-03-30] MEDS ORDERED: NS 1,000 ML IV ONE (07:30)
--- NOTE | 2020-03-30 08:17 | ROOR ---
Patient Name: Shelton Goodrich Procedure Date: 03/30/2020 7:59 AM Date of : 1950 Age: 70 Room: [facility] Gender: Male Note Status: Finalized Procedure: Upper Endoscopy + Biopsies Indications: Heartburn, Exclusion of Cast's esophagus Providers: David Jones MD Referring MD: [facility], Admin. Requesting Provider: Medicines: Monitored Anesthesia Care Complications: No immediate complications. Procedure: Pre-Anesthesia Assessment: - The heart rate, respiratory rate, oxygen saturations, blood pressure, adequacy of pulmonary ventilation, and response to care were monitored throughout the procedure. The Endoscope was introduced through the mouth, and advanced to the second part of duodenum. The upper GI endoscopy was accomplished without difficulty. The patient tolerated the procedure well. Findings: The Z-line was irregular and was found 40 cm from the incisors. Multiple biopsies were obtained with cold forceps for evaluation to rule out Cast's Esophagus randomly at the gastroesophageal junction. A small hiatal hernia was present. No other significant abnormalities were identified in a careful examination of the stomach. The exam of the duodenum was otherwise normal. Impression: - Z-line irregular, 40 cm from the incisors. - Small hiatal hernia. - Multiple biopsies were obtained at the gastroesophageal junction. - The examination was otherwise normal. Recommendation: - Patient has a contact number available for emergencies. The signs and symptoms of potential delayed complications were discussed with the patient. Return to normal activities tomorrow. Written discharge instructions were provided to the patient. - High fiber diet. - Discharge patient to home. - Follow an antireflux regimen. - Continue present medications. - Await pathology results. - Telephone GI clinic for pathology results in 1 week. - Return to referring physician. - The findings and recommendations were discussed with the patient. Procedure Code(s): --- Professional --- 60050, Esophagogastroduodenoscopy, flexible, transoral; with biopsy, single or multiple Diagnosis Code(s): --- Professional --- K22.8, Other specified diseases of esophagus K44.9, Diaphragmatic hernia without obstruction or gangrene R12, Heartburn CPT copyright 2019 [employer]. All rights reserved. The codes documented in this report are preliminary and upon stitchdown thread laster review may be revised to meet current compliance requirements. David Jones MD David Jones MD 03/30/2020 8:16:46 AM Electronically signed by David Jones MD Number of Addenda: 0 Note Initiated On: 03/30/2020 7:59 AM Estimated Blood Loss: Estimated blood loss: none.
[2020-03-30 08:41] VITALS: BP 113/62
--- NOTE | 2020-03-30 08:47 | ROOR ---
Patient Name: Shelton Goodrich Procedure Date: 03/30/2020 8:00 AM Date of : 1950 Age: 70 Room: [facility] Gender: Male Note Status: Finalized Procedure: Total Colonoscopy to Cecum + Hot Snare Polypectomy + Hemoclips Indications: Screening for colorectal malignant neoplasm Providers: David Jones MD Referring MD: [facility], Admin. Requesting Provider: Medicines: Monitored Anesthesia Care Complications: No immediate complications. Procedure: Pre-Anesthesia Assessment: - The heart rate, respiratory rate, oxygen saturations, blood pressure, adequacy of pulmonary ventilation, and response to care were monitored throughout the procedure. The Colonoscope was introduced through the anus and advanced to the cecum, identified by appendiceal orifice and ileocecal valve. The colonoscopy was performed without difficulty. The patient tolerated the procedure well. The quality of the bowel preparation was excellent. Findings: The perianal and digital rectal examinations were normal. Non-bleeding internal hemorrhoids were found during retroflexion. The hemorrhoids were small and Grade I (internal hemorrhoids that do not prolapse). Multiple small and large-mouthed diverticula were found in the recto-sigmoid colon, sigmoid colon and descending colon. A medium polyp was found in the proximal ascending colon. The polyp was sessile. The polyp was removed with a hot snare. Resection and retrieval were complete. To prevent bleeding after the polypectomy, three hemostatic clips were successfully placed (MR conditional). There was no bleeding at the end of the procedure. The exam was otherwise without abnormality on direct and retroflexion views. Impression: - Non-bleeding internal hemorrhoids. - Diverticulosis in the recto-sigmoid colon, in the sigmoid colon and in the descending colon. - One medium polyp in the proximal ascending colon, removed with a hot snare. Resected and retrieved. Clips (MR conditional) were placed. - The examination was otherwise normal on direct and retroflexion views. - The exam was otherwise normal to the cecum. Recommendation: - Patient has a contact number available for emergencies. The signs and symptoms of potential delayed complications were discussed with the patient. Return to normal activities tomorrow. Written discharge instructions were provided to the patient. - High fiber diet. - Discharge patient to home. - Continue present medications. - Await pathology results. - Telephone GI clinic for pathology results in 1 week. - Repeat colonoscopy in 3 years for surveillance based on pathology results. - Return to referring physician. - The findings and recommendations were discussed with the patient. Procedure Code(s): --- Professional --- 17812, Colonoscopy, flexible; with removal of tumor(s), polyp(s), or other lesion(s) by snare technique Diagnosis Code(s): --- Professional --- Z12.11, Encounter for screening for malignant neoplasm of colon K64.0, First degree hemorrhoids K63.5, Polyp of colon K57.30, Diverticulosis of large intestine without perforation or abscess without bleeding CPT copyright 2019 [employer]. All rights reserved. The codes documented in this report are preliminary and upon marble machine operator review may be revised to meet current compliance requirements. David Jones MD David Jones MD 03/30/2020 8:46:52 AM Electronically signed by David Jones MD Number of Addenda: 0 Note Initiated On: 03/30/2020 8:00 AM Estimated Blood Loss: Estimated blood loss: none.
[2020-03-30] MEDS ORDERED: LIDOCAINE 2% 100MG/5ML SDV (FOR ANES.) As Ordered ONE (08:49)
[2020-03-30] MEDS ORDERED: ALBUTEROL SULFATE 2.5 MG/0.5 ML INH NEB SOLN INH ONE (09:00)
== END 2020-03-30 08:37 | disposition home or self-care (01) ==
LOC: M OPP 07:13
PROVIDERS: ATTEND Internal Medicine Gastroenterology
DX: Z12.11 Encounter for screening for malignant neoplasm of colon (principal); C18.2 Malignant neoplasm of ascending colon; K64.0 First degree hemorrhoids; K57.30 Diverticulosis of large intestine without perforation or abscess without bleeding; K22.8 Other specified diseases of esophagus; K44.9 Diaphragmatic hernia without obstruction or gangrene; R12 Heartburn; K21.9 Gastro-esophageal reflux disease without esophagitis; I25.2 Old myocardial infarction; I10 Essential (primary) hypertension; Z79.82 Long term (current) use of aspirin; Z79.891 Long term (current) use of opiate analgesic; Z79.899 Other long term (current) drug therapy; Z88.0 Allergy status to penicillin; Z88.5 Allergy status to narcotic agent; Z88.6 Allergy status to analgesic agent; Z98.61 Coronary angioplasty status; Z87.891 Personal history of nicotine dependence
CPT/HCPCS: 43239; 45385; 88305; J2405; J3010

== ENCOUNTER → 2020-04-22 | Outpatient (CLI) | payer OTHER ==
[~2020-04-22] MED LIST changes: +BUSP10TA PO; +CLON0.5T2 PO; +ISOS60TA2 PO; +LISI10TA4 PO; +MONT5TAB2 PO; +OMEP-221 PO; +PRAZ2CAP40 PO; +ROSU40TA4 PO; +TRAM50TA2 PO; +VENTAER INH; +ZETI10TA16 PO; +ZYLO300T6 PO; -propofoL 500 MG/50 ML VIAL As Ordered ONE
== END ==
LOC: M LABSMTC 09:50
PROVIDERS: ATTEND Anesthesiology
DX: Z01.812 Encounter for preprocedural laboratory examination (principal); Z20.828 Contact with and (suspected) exposure to other viral communicable diseases

== ENCOUNTER 2020-04-27 06:10 | Inpatient (IN) | payer OTHER ==
--- NOTE | 2020-04-26 22:06 | HPE ---
HISTORY AND PHYSICAL DATE OF ADMISSION: 04/27/2020 ADMITTING DIAGNOSIS: Right colon cancer. HISTORY OF PRESENT ILLNESS: The patient is a 70-year-old man being admitted on the 27 of April to undergo a right hemicolectomy for carcinoma. The patient was seen by Dr. Jones of Gastroenterology on the 05 of March. He was seen for a screening colonoscopy and because of a history of heartburn, an EGD was also scheduled. There is no family history of colorectal cancer. He underwent his scope on the 30 of March. The EGD revealed an irregular Z-line with a small hiatal hernia, but there was nothing else abnormal identified. A colonoscopy revealed some hemorrhoids. He had diverticulosis in the descending and sigmoid colon. A polyp was identified in the proximal ascending colon which was removed with a hot snare and Hemoclips were placed to prevent bleeding. The pathology returned showing moderately differentiated adenocarcinoma in the polyp of the ascending colon. The esophageal biopsy showed no evidence of intestinal metaplasia. The patient was referred to ne and is now admitted to undergo a robotic assisted laparoscopic right hemicolectomy. He is to perform a full mechanical and antibiotic bowel preparation prior to admission. ALLERGIES: 1. Penicillin. 2. Hydrocodone. MEDICATIONS: 1. Albuterol Nebulizers every 4 hours as needed. 2. Allopurinol 300 mg p.o. daily. 3. Aspirin 81 mg p.o. daily. 4. Budesonide. 5. Formoterol Fumarate Inhaler 2 puffs as needed. 6. Buspirone 10 mg p.o. daily. 7. Clonazepam one mg p.o. daily. 8. Duloxetine 50 mg p.o. daily. 9. Acetamide 10 mg p.o. daily. 10. Famotidine 20 mg daily before dinner as needed. 11. Ferrous Sulfate. 12. Flomax 0.4 mg daily at bedtime. 13. Isosorbide Mononitrate E.R. 60 mg p.o. daily. 14. Lisinopril 10 mg tablets one half tablet daily at bedtime. 15. Metoprolol Succinate E.R. 25 mg p.o. twice daily. 16. Mirtazapine 15 mg p.o. daily at noon and at bedtime. 17. Montelukast 10 mg p.o. daily in the morning. 18. Omeprazole 40 mg p.o. daily in the morning. 19. Prazosin Hydrochloride 2 mg one capsule daily at bedtime. 20. Pregabalin 75 mg p.o. twice daily. 21. Pregabalin 150 mg p.o. twice daily. 22. Quetiapine Fumarate 50 mg p.o. three times daily. 23. Rosuvastatin 40 mg once daily. 24. Carafate one gram by mouth three times daily. 25. Tramadol Hydrochloride 50 mg p.o. twice daily p.r.n. PAST MEDICAL HISTORY: The patient's past medical history is significant for: 1. Hypertension. 2. Hypercholesterolemia. 3. Depression. 4. Anxiety. 5. Coronary artery disease. 6. History of chronic obstructive pulmonary disease. 7. Asthma. 8. Obstructive sleep apnea. 9. His [facility] records suggest a diagnosis of rheumatoid arthritis. 10. Osteoarthritis. 11. Obesity. PAST SURGICAL HISTORY: The patient's past surgical history is significant for: 1. Distant tonsillectomy. 2. Left shoulder surgery in 2003. 3. Neck surgery in 2015. 4. Coronary artery bypass in 2014. 5. Inguinal hernia repair as an . FAMILY HISTORY: The patient's father succumbed to hypertension with heart disease and had cancer and his mother is from hypertension and heart disease. PERSONAL SOCIAL HISTORY: The patient is . He is a current smoker. He denies any alcohol use. REVIEW OF SYSTEMS: The patient's review of systems reveals no history of seizures, stroke or TIA. He denies any history of DVT or pulmonary embolus. He has not currently had any chest pain or palpitations. He denies chronic cough or wheezing but does have some exertional shortness of breath. He has not had any rectal bleeding, change in his bowel habits. He denies dysuria or hematuria. PHYSICAL EXAMINATION: VITAL SIGNS: Recent vital signs in the office showed a blood pressure of 156/88 with a height of 69 inches, weight of 122 kg, giving him a BMI of 40. GENERAL APPEARANCE: The patient is alert and oriented. HEENT: Sclerae are anicteric. Mucous membranes are moist. NECK: Supple without carotid bruits. HEART: Regular rate and rhythm. He has a scar from his prior coronary bypass. LUNGS: Clear bilaterally but the breath sounds are somewhat distant. ABDOMEN: Obese. There are no definite scars identified on the abdomen. He has no hernia. The abdomen is soft and nontender throughout. EXTREMITIES: No significant peripheral edema. He has palpable radial and pedal pulses. SKIN: Warm and dry. RECTAL: Digital rectal examination is not performed given his very recent colonoscopy. IMPRESSION: 1. Ascending colon cancer. 2. Atherosclerotic coronary artery disease, status post bypass. 3. Obstructive sleep apnea. 4. Morbid obesity. 5. Asthma and chronic obstructive pulmonary disease. 6. Hypertension. 7. Hyperlipidemia. 8. Anxiety and depression. 9. Ongoing tobacco use with nicotine addiction. PLAN: The patient is to perform a full mechanical and antibiotic bowel preparation at home on the 26 of April. He will be presenting to the hospital for admission on the . A right hemicolectomy to be performed laparoscopically with robotic assistance is scheduled. He was counseled in the office regarding the plans for surgery. Indications for the surgery as well as the risks and possible benefits were discussed. This includes but are not limited to bleeding, infection, scarring, adverse drug reaction, need for further surgery, injury of internal organ, anastomotic leak and hernia. He had an opportunity to ask questions and desires to proceed. He was counseled that he should anticipate a roughly 3-day hospital stay. NICOLE
[2020-04-27] VITALS (8 sets, daily range): BP systolic 122–139; BP diastolic 76–82
[~2020-04-27] VITALS: Ht 175.3 cm; Wt 118.8 kg
[~2020-04-27 06:10] MED LIST changes: -BUSP10TA PO; -CLON0.5T2 PO; -ISOS60TA2 PO; +LIDOCAINE 1% MDV 20ML VIAL SQ PRN; -LISI10TA4 PO; +LR 1,000 ML IV ONE; -MONT5TAB2 PO; -OMEP-221 PO; -PRAZ2CAP40 PO; -ROSU40TA4 PO; -TRAM50TA2 PO; -ZETI10TA16 PO; -ZYLO300T6 PO
[2020-04-27] MEDS ORDERED: BUPIVACAINE HCL 0.25% 30ML VIAL As Ordered ONE (07:12)
[2020-04-27] MEDS ORDERED: MIDAZOLAM INJ 2MG/2ML VIAL (J2250 PER 1MG) As Ordered ONE (07:22)
[2020-04-27] MEDS ORDERED: propofoL 200 MG/20 ML VIAL As Ordered ONE (07:22)
[2020-04-27] MEDS ORDERED: ONDANSETRON 4MG/2ML VIAL As Ordered ONE ×2 (07:22→10:23)
[2020-04-27] MEDS ORDERED: ROCURONIUM BROMIDE 50 MG/5 ML VIAL As Ordered ONE ×2 (07:22→10:23)
[2020-04-27] MEDS ORDERED: fentaNYL 100 MCG/2 ML INJECTION (J3010) As Ordered ONE ×2 (07:22→09:23)
[2020-04-27] MEDS ORDERED: KETOROLAC 60MG 2ML VIAL As Ordered ONE (07:22)
[2020-04-27] MEDS ORDERED: dexameTHASONE 4 MG/ML 1ML VIAL (J1100 PER 1MG) As Ordered ONE (07:22)
[2020-04-27] MEDS ORDERED: LIDOCAINE 2% 100MG/5ML SDV (FOR ANES.) As Ordered ONE (07:22)
[2020-04-27] MEDS ORDERED: SUGAMMADEX SODIUM 500 MG/5 ML VIAL (BRIDION) As Ordered ONE (07:23)
[2020-04-27] MEDS ORDERED: cefoTEtan INJ 2GM VIAL (S0074 PER 500MG) As Ordered ONE (07:36)
[2020-04-27] MEDS ORDERED: CIPROFLOXACIN/D5W 400 MG/200 ML BAG (J0744) As Ordered ONE (07:44)
[2020-04-27] MEDS ORDERED: CIPROFLOXACIN 400 MG in IV 1 EA IV ONE ×2 (07:45→20:00)
[2020-04-27] MEDS ORDERED: PHENYLEPHRINE 10MG/ML 1ML VIAL (J2370 PER 1) As Ordered ONE (08:07)
[2020-04-27] MEDS ORDERED: ACETAMINOPHEN TAB 650MG DOSE (2X325MG) PO PRN (11:45)
[2020-04-27] MEDS ORDERED: KETOROLAC 30 MG/ML 1ML VIAL IV PRN (11:45)
[2020-04-27] MEDS ORDERED: ONDANSETRON 4MG/2ML VIAL IV PRN ×2 (11:45→12:00)
[2020-04-27] MEDS ORDERED: MORPHINE 2 MG/ML 1ML VIAL (J2270) IV PRN (11:45)
[2020-04-27] MEDS ORDERED: fentaNYL 100 MCG/2 ML INJECTION (J3010) IV PRN (12:00)
[2020-04-27] MEDS ORDERED: oxyCODONE 5MG TAB PO PRN (12:00)
[2020-04-27] MEDS ORDERED: HYDROMORPHONE HCL 0.5 MG/ 0.5 ML SYRINGE (J1170 PER 1) IV PRN (12:00)
[2020-04-27] MEDS ORDERED: LR 1,000 ML IV SCH (12:00)
[2020-04-27] MEDS ORDERED: LISI10TA4 PO (12:21)
[2020-04-27] MEDS ORDERED: BUSP10TA PO (12:21)
[2020-04-27] MEDS ORDERED: ROSU40TA4 PO (12:21)
[2020-04-27] MEDS ORDERED: MONT5TAB2 PO (12:21)
[2020-04-27] MEDS ORDERED: OMEP-221 PO (12:21)
[2020-04-27] MEDS ORDERED: CLON0.5T2 PO (12:21)
[2020-04-27] MEDS ORDERED: ISOS60TA2 PO (12:21)
[2020-04-27] MEDS ORDERED: PRAZ2CAP40 PO (12:21)
[2020-04-27] MEDS ORDERED: ZETI10TA16 PO (12:21)
[2020-04-27] MEDS ORDERED: ZYLO300T6 PO (12:21)
[2020-04-27] MEDS ORDERED: TRAM50TA2 PO (12:36)
[2020-04-27] MEDS: LR 1,000 ML IV SCH (13:29)
[2020-04-27] MEDS ORDERED: metroNIDAZOLE 500 MG in IV 1 EA IV ONE (14:00)
[2020-04-27] MEDS ORDERED: ALBUTEROL 90 MCG/ACT 8GM HFA INHALER INH PRN (16:45)
[2020-04-27] MEDS ORDERED: traMADol 50 MG TAB PO PRN (16:45)
[2020-04-27] MEDS: SYMBICORT 160/4.5MCG INHALER 6GM INH SCH (20:01)
[2020-04-27] MEDS ORDERED: FAMOTIDINE 20 MG TAB PO SCH (21:00)
[2020-04-27] MEDS: ENOXAPARIN 40MG/0.4ML SYRINGE (J1650 PER 10MG) SC SCH (21:10)
[2020-04-27] MEDS: EZETIMIBE 10 MG TAB (ZETIA) PO SCH (21:11)
[2020-04-27] MEDS: PREGABALIN 75 MG CAP(LYRICA) PO SCH (21:11)
[2020-04-27] MEDS: METOPROLOL TART 25 MG TABLET PO SCH (21:12)
[2020-04-27] MEDS: busPIRone 10 MG TAB PO SCH (21:12)
[2020-04-27] MEDS: lisinopriL 5 MG TAB PO SCH (21:13)
[2020-04-27] MEDS: PRAZOSIN 1 MG CAP PO SCH (23:32)
[2020-04-28 02:00] VITALS: BP 115/63
[2020-04-28] MEDS: LR 1,000 ML IV SCH (03:37)
[2020-04-28] MEDS: KETOROLAC 30 MG/ML 1ML VIAL IV PRN ×2 (03:54→18:55)
[2020-04-28 05:56] LABS: BASO % 0.4 % (0.0-1.0); EOS # 0.1 10^3/uL (0.0-0.5); EOS % 0.7 % (0.0-3.0); HEMATOCRIT 38.4 % (42.0-52.0); HEMOGLOBIN 12.1 g/dl (13.5-17.5); LYMPH # 2.6 10^3/uL (1.5-5.0); LYMPH % 31.9 % (24.0-44.0); MEAN CORPUSCULAR HEMOGLOBIN 27.7 pg (27.0-33.0); MEAN CORPUSCULAR HGB CONC 31.5 g/dl (32.0-36.5); MEAN CORPUSCULAR VOLUME 87.9 fl (80.0-96.0); MONO # 0.9 10^3/uL (0.0-0.8); MONO % 11.1 % (0.0-5.0); NEUTROPHILS # 4.6 10^3/uL (1.5-8.5); NEUTROPHILS % 55.7 % (36.0-66.0); PLATELET COUNT, AUTOMATED 185 10^3/uL (150-450); RED BLOOD COUNT 4.37 10^6/uL (4.30-6.10); WHITE BLOOD COUNT 8.3 10^3/uL (4.0-10.0)
[2020-04-28 06:00] VITALS: BP 113/62
[2020-04-28 06:18] LABS: BLOOD UREA NITROGEN 10 MG/DL (7-18); CALCIUM LEVEL 8.2 MG/DL (8.8-10.2); CARBON DIOXIDE LEVEL 29 MEQ/L (21-32); CHLORIDE LEVEL 109 MEQ/L (98-107); CREATININE FOR GFR 0.84 MG/DL (0.70-1.30); GLOMERULAR FILTRATION RATE > 60.0 (>42); GLUCOSE, FASTING 102 MG/DL (70-100); POTASSIUM SERUM 3.9 MEQ/L (3.5-5.1); SODIUM LEVEL 143 MEQ/L (136-145)
--- NOTE | 2020-04-28 06:47 | RO ---
OPERATIVE NOTE DATE OF OPERATION: 04/27/2020 PREOPERATIVE DIAGNOSIS: Proximal ascending colon cancer. POSTOPERATIVE DIAGNOSIS: Proximal ascending colon cancer. PROCEDURE PERFORMED: Robotic-assisted laparoscopic right hemicolectomy with intracorporeal ileocolonic anastomosis. SURGEON: Shelton Sexton MD SPORT SHOE SPIKE ASSEMBLER: DO Dr. David Ariza's assistance was essential for retrieval of the specimen and closure of the midline incision. ANESTHESIA: General. INDICATIONS FOR THE PROCEDURE: The patient is a 70-year-old man who had recently undergone a colonoscopy. He was found to have a medium-sized polyp in the proximal ascending colon which was resected by the technology manager with a hot snare. Hemostatic clips were placed to close the wound. The final pathology revealed moderately differentiated adenocarcinoma and he is now for a robotic-assisted right hemicolectomy. OPERATIVE PROCEDURE: The patient was brought to the operating room and placed on the table in a supine position. TEDs and sequentials were utilized. He was placed under general endotracheal anesthesia. A Rojas catheter was inserted. The patient's abdomen was prepped and draped in a sterile fashion. 1/4% Marcaine was infiltrated at each of the trocar sites as needed. The initial trocar placement was in the high left upper quadrant. A short incision was made and a Veress needle was inserted. After a positive hanging drop test, the abdomen was inflated with carbon dioxide gas. An 8 mm port was then placed over a 5 mm scope and this was advanced through the abdominal wall without difficulty. Initial examination showed no adhesions within the abdomen. The liver appeared normal and visualized portions of the stomach and small and large bowel appeared normal. A second 8 mm port was placed roughly midline between the first port and the umbilicus. A 12 mm port was placed just above the umbilicus and a final 8 mm port was placed in the right lower quadrant. The patient was rolled slightly to the left and moved into a slight reverse Trendelenburg position. The patient cart of the da Cele XI robot was brought into position and the endoscope port was docked to the second port placed in the left upper quadrant. Targeting took place on the area of the hepatic flexure. The additional robotic arms were then docked. The SynchroSeal was placed in the left upper quadrant with a fenestrated bipolar in the supraumbilical site and grasping retractor in the right lower quadrant. I then moved to the control console to proceed with the operation. Initial inspection showed that the cecum and ascending colon were quite mobile and were folded up into the subhepatic space. The attachments to the terminal ileum were quite free and mobile as well. The greater omentum was lifted up and moved to the left and displaced above the transverse colon. The transverse colon was clearly identified. Initially I freed the appendix which was adherent to the tissues lateral to the terminal ileum using the SynchroSeal. An opening was then created through the terminal ileal mesentery and the terminal ileum was transected with a 45 mm endoscopic stapler with a blue load. I then moved to the proximal transverse colon. The superior attachments of the proximal transverse colon extending to the hepatic flexure were divided, mobilizing this inferiorly. An opening was created through the transverse through the transverse mesocolon and the colon was transected with two firings of the 45 mm stapler with blue loads. The mesentery of the transverse colon was then divided down toward its base using the SynchroSeal. Once this had been accomplished, I turned my attention back to the terminal ileal mesentery. The patient was tilted slightly further to the left and placed into a slightly stronger reverse Trendelenburg position to mobilize the small bowel away from the root of the ileal mesentery. The mesentery was then divided down to its base. Dissection was then carried superiorly. The ileocolic vascular pedicle was identified and this was divided carefully using the SynchroSeal. Excellent hemostasis was achieved. Dissection was then continued superiorly and laterally to free the attachments of the ascending colon which were actually quite limited. Finally I completed the dissection of the transverse mesocolon at its base and connected this portion of the dissection with that coming from the terminal ileum and completely freed the specimen. The specimen was then displaced into the left side of the abdomen. The operative area was irrigated and inspected and hemostasis was found to be excellent. The terminal ileum and the end of the transverse colon were then brought into apposition in the right upper quadrant. There was no tension once they were placed alongside each other. I placed a single 2-0 Vicryl suture to tack them together and elected to proceed with an intracorporeal anastomosis. A small colotomy was made with endoscopic scissors and likewise a small opening was made in the antimesenteric border of the terminal ileum. A 45 mm endoscopic stapler was used to approximate the terminal ileum and transverse colon. The residual opening was closed with a running suture of an absorbable 2-0 V-Loc suture. This was carried from superior to inferior, completely closing the opening and then was returned back superiorly to oversew the initial closure with some inverting sutures. This appeared to give a good anastomosis. A single additional 3-0 Vicryl suture was placed at the inferior edge of the anastomosis. The area was irrigated and inspected and the anastomosis appeared excellent. The robotic instruments were then removed and the patient cart was withdrawn after undocking the robot. The specimen was grasped with a grasper through the supraumbilical site. I returned to the OR table and with Dr. Hernandez's assistance, made an incision along the midline centered on the 12 mm port site. A small Manjit retractor was placed and the specimen was withdrawn through this without difficulty. I opened the specimen on the back table and identified a remaining hemoclip at the site of the polypectomy and the proximal ascending colon. There was a minimal ridge of tissue at that site but no definite residual cancer was seen. The specimen was sent for permanent pathology. The Manjit retractor was removed. The fascia at the midline was closed with interrupted simple sutures of #1 Vicryl. The subcutaneous tissues were approximated with several 3-0 Vicryls. The skin incisions were all closed with buried 4-0 Vicryl and Steri-Strips. An additional 1/4% Marcaine was infiltrated particularly at the supraumbilical site. The patient's Rojas catheter was withdrawn. He was awakened in the operating room, extubated and moved to the recovery room in stable condition. NICOLE
[2020-04-28] MEDS: SYMBICORT 160/4.5MCG INHALER 6GM INH SCH ×2 (07:25→19:11)
[2020-04-28] MEDS: OMEPRAZOLE 20 MG CAP PO SCH (09:23)
[2020-04-28] MEDS: busPIRone 10 MG TAB PO SCH ×2 (09:23→21:21)
[2020-04-28] MEDS: PREGABALIN 75 MG CAP(LYRICA) PO SCH ×2 (09:24→21:19)
[2020-04-28] MEDS: DULoxetine 30 MG CAP (CYMBALTA) PO SCH (09:24)
[2020-04-28] MEDS: TAMSULOSIN 0.4 MG CAP PO SCH (09:24)
[2020-04-28] MEDS: allopurinoL 300 MG TAB PO SCH (09:24)
[2020-04-28] MEDS: ROSUVASTATIN 10 MG TAB (CRESTOR) PO SCH (09:24)
[2020-04-28] MEDS: METOPROLOL TART 25 MG TABLET PO SCH ×2 (09:25→21:22)
[2020-04-28 10:00] VITALS: BP 119/67
[2020-04-28] MEDS: ISOSORBIDE MON. (IMDUR) 60 MG XR TAB PO SCH (13:29)
[2020-04-28] MEDS: clonazePAM 0.5 MG TAB PO PRN (13:30)
[2020-04-28 14:00] VITALS: BP 122/69
[2020-04-28 18:00] VITALS: BP 126/74
[2020-04-28] MEDS: ENOXAPARIN 40MG/0.4ML SYRINGE (J1650 PER 10MG) SC SCH (21:16)
[2020-04-28] MEDS: EZETIMIBE 10 MG TAB (ZETIA) PO SCH (21:19)
[2020-04-28] MEDS: PRAZOSIN 1 MG CAP PO SCH (21:20)
[2020-04-28] MEDS: lisinopriL 5 MG TAB PO SCH (21:22)
[2020-04-28 22:00] VITALS: BP 118/62
[2020-04-29 02:00] VITALS: BP 111/69
[2020-04-29 06:00] VITALS: BP 119/73
[2020-04-29] MEDS: SYMBICORT 160/4.5MCG INHALER 6GM INH SCH ×2 (07:34→19:09)
[2020-04-29] MEDS: ROSUVASTATIN 10 MG TAB (CRESTOR) PO SCH (08:38)
[2020-04-29] MEDS: TAMSULOSIN 0.4 MG CAP PO SCH (08:38)
[2020-04-29] MEDS: PREGABALIN 75 MG CAP(LYRICA) PO SCH ×2 (08:38→21:26)
[2020-04-29] MEDS: OMEPRAZOLE 20 MG CAP PO SCH (08:38)
[2020-04-29] MEDS: busPIRone 10 MG TAB PO SCH ×2 (08:38→21:29)
[2020-04-29] MEDS: allopurinoL 300 MG TAB PO SCH (08:38)
[2020-04-29] MEDS: DULoxetine 30 MG CAP (CYMBALTA) PO SCH (08:38)
[2020-04-29] MEDS: METOPROLOL TART 25 MG TABLET PO SCH ×2 (08:41→21:31)
[2020-04-29 10:00] VITALS: BP 120/70
[2020-04-29] MEDS: ISOSORBIDE MON. (IMDUR) 60 MG XR TAB PO SCH (12:33)
[2020-04-29 14:00] VITALS: BP 106/63
[2020-04-29 16:00] VITALS: BP 106/62
--- NOTE | 2020-04-29 19:53 | IPN ---
PROGRESS NOTE DATE: 04/29/2020 HISTORY: The patient is now postop day number two from a robotic-assisted laparoscopic right hemicolectomy for a polyp-containing cancer in the proximal ascending colon. He was advanced to a regular diet yesterday. He started having bowel movements late yesterday evening and through the day today. Vital signs show that he has been afebrile over the past 24 hours. Pulse is in the 70s to low 80s and his blood pressure is excellent. Intake and output show that yesterday he had 2800 in with 2300 out. He had one bowel movement yesterday and six so far today. His oral intake today has been excellent. PHYSICAL EXAM: The patient is sitting up in a chair at the bedside finishing lunch at the time of my visit. He denies any significant pain. He is breathing easily. Heart exam shows a regular rhythm. The abdomen is obese and protuberant but soft. He has active bowel sounds. His dressings are clean and dry. PATHOLOGY: I was contacted by the pathologist today who reported that the site of the polypectomy was identified as marked by a previously placed hemoclip. There was no evidence of any residual polyp or tumor. Fifteen lymph nodes were identified that were all benign. IMPRESSION: The patient is doing very well two days postop from his right hemicolectomy. Pathology revealed no residual cancer. PLAN: I anticipate that the patient will be ready for discharge tomorrow. He has been having several bowel movements today and as his diet has been converted to regular, I anticipate these will become more solid and infrequent. He has been able to ambulate without difficulty. He knows to anticipate discharge tomorrow. NICOLE
[2020-04-29] MEDS: ENOXAPARIN 40MG/0.4ML SYRINGE (J1650 PER 10MG) SC SCH (21:25)
[2020-04-29] MEDS: PRAZOSIN 1 MG CAP PO SCH (21:29)
[2020-04-29] MEDS: lisinopriL 5 MG TAB PO SCH (21:30)
[2020-04-29] MEDS: EZETIMIBE 10 MG TAB (ZETIA) PO SCH (21:31)
[2020-04-29 22:00] VITALS: BP 115/62
[2020-04-30 06:00] VITALS: BP 113/61
[2020-04-30] MEDS: TAMSULOSIN 0.4 MG CAP PO SCH (07:27)
[2020-04-30] MEDS: PREGABALIN 75 MG CAP(LYRICA) PO SCH (07:27)
[2020-04-30] MEDS: ROSUVASTATIN 10 MG TAB (CRESTOR) PO SCH (07:29)
[2020-04-30] MEDS: OMEPRAZOLE 20 MG CAP PO SCH (07:31)
[2020-04-30] MEDS: DULoxetine 30 MG CAP (CYMBALTA) PO SCH (07:32)
[2020-04-30 07:33] VITALS: BP 121/71
[2020-04-30] MEDS: METOPROLOL TART 25 MG TABLET PO SCH (07:33)
[2020-04-30] MEDS: busPIRone 10 MG TAB PO SCH (07:34)
[2020-04-30] MEDS: allopurinoL 300 MG TAB PO SCH (07:34)
[2020-04-30] MEDS: clonazePAM 0.5 MG TAB PO PRN (07:38)
[2020-04-30] MEDS: SYMBICORT 160/4.5MCG INHALER 6GM INH SCH (08:08)
[2020-04-30 10:00] VITALS: BP 135/74
--- NOTE | 2020-04-30 12:07 | IPN ---
PROGRESS NOTE DATE: 04/30/2020 HISTORY: Patient is now postoperative day #3 from a robotic-assisted laparoscopic right hemicolectomy for a cancer-containing polyp of the proximal ascending colon. His final pathology revealed no residual cancer with negative nodes. Vital signs show that he has been afebrile over the past 24 hours. His pulse is in the 70s and low 80s, and his blood pressure is excellent. Room air oxygen saturations are fine. Intake and output show that he had 4100 mL in yesterday with 1600 of urine output recorded. He had eight bowel movements yesterday described as loose, and last evening he was reported to have multiple liquid blood-stained bowel movements. The patient reports that the bowel movements are seemingly less bloody today and developing some consistency. PHYSICAL EXAMINATION: Patient is up walking in his room and sitting in a chair when I came in. He is comfortable and alert. He denies any significant pain. Heart exam shows a regular rate and rhythm, and he is not tachycardic. The lungs are clear. The abdomen is obese but soft. He has active bowel sounds. His incisions are all clean and dry with no evidence of infection. IMPRESSION: Patient is doing very well postoperative day #3 from his right hemicolectomy. He did have some blood in his liquid stools overnight, but he reports that this seems to have diminished or resolved, and his bowel movements are becoming somewhat more formed. PLAN: Patient will be discharged home today. He will take a regular diet as tolerated. He can shower as desired. I will not provide him with any new prescriptions, and he requires no prescription pain medications. I advised him to monitor for any further bleeding with his bowel movements and to contact my office if this seems excessive. He should call the office on Monday to arrange a followup in 2 weeks with me. He should call sooner for any problems. NICOLE
--- NOTE | 2020-04-30 13:53 | IPN ---
PROGRESS NOTE DATE: 04/28/2020 SUBJECTIVE: The patient is now postop day #1 from a robotic-assisted laparoscopic right hemicolectomy for a small cancer-containing polyp of the proximal ascending colon. His surgical specimen showed a single remaining HemoClip marking the site of his cancer, but there appeared only to be a small scar with no definite gross tumor remaining. The patient has had no nausea or vomiting. He reports a minimal amount of flatus, but no bowel movement yet. He does feel somewhat distended. OBJECTIVE: VITAL SIGNS: Show that he has been afebrile since surgery. His pulse has remained in the 90s occasionally up into the low 100s. His blood pressure is good. INTAKE AND OUTPUT: Show that yesterday he had 2200 in with 1200 mL out. His urine output has been excellent. GENERAL APPEARANCE: The patient appears fairly comfortable at rest. HEART: Shows a regular rhythm. LUNGS: Clear with perhaps slightly distant breath sounds. ABDOMEN: Obese and also quite distended. He does have some bowel sounds present. His dressings are clean and dry. LABORATORY DATA: Studies show a white count of 8, hemoglobin 12, hematocrit 38, and a platelet count of 185,000. His differential count shows 56% neutrophils, 32% lymphocytes, and 11% monocytes. Chemistry profile shows normal electrolytes with the exception of a minimal elevation of his chloride to 109. BUN is 10 with a creatinine of 0.8 and his glucose is 102. IMPRESSION: The patient is doing very well following his robotic-assisted right hemicolectomy. He has tolerated clear liquids very well. He is having no nausea, but feels somewhat full or distended. PLAN: The patient will have his IV saline locked. I will advance him to a regular diet, but I counseled him to begin slowly and if he feels uncomfortable or develops nausea, he should just stop eating. He is encouraged to be up out of bed ambulating. We will see how he tolerates the regular food. I counseled him that he should anticipate a return of bowel function sometime likely today and that he is likely to have loose watery bowel movements at first. NICOLE
== END 2020-04-30 12:25 | disposition home or self-care (01) | DRG 331 ==
LOC: M OR 06:10 → M MSPAV 13:16
PROVIDERS: ADMIT Surgery; ATTEND Surgery
PROC: 8E0W4CZ Robotic Assisted Procedure of Trunk Region, Percutaneous Endoscopic Approach (ICD-10-PCS; 2020-04-27)
PROC: 0DTK4ZZ Resection of Ascending Colon, Percutaneous Endoscopic Approach (ICD-10-PCS; principal; 2020-04-27 07:30)
DX: C18.2 Malignant neoplasm of ascending colon (principal); J44.9 Chronic obstructive pulmonary disease, unspecified; I10 Essential (primary) hypertension; E66.01 Morbid (severe) obesity due to excess calories; Z68.38 Body mass index [BMI] 38.0-38.9, adult; K57.30 Diverticulosis of large intestine without perforation or abscess without bleeding; Z88.0 Allergy status to penicillin; Z88.5 Allergy status to narcotic agent; Z79.899 Other long term (current) drug therapy; F17.200 Nicotine dependence, unspecified, uncomplicated; E78.5 Hyperlipidemia, unspecified; F41.9 Anxiety disorder, unspecified; F32.9 Major depressive disorder, single episode, unspecified

== ENCOUNTER → 2020-07-27 | Outpatient (CLI) | payer OTHER ==
[~2020-07-27] MED LIST changes: +BUSP10TA PO; +CLON0.5T2 PO; +GABA-282 PO; -GABA-843 PO; +ISOS1TAB36 PO; -LIDOCAINE 1% MDV 20ML VIAL SQ PRN; +LISI10TA22 PO; -LR 1,000 ML IV ONE; +MONT10TA10 PO; +OMEP-221 PO; +PRAZ2CAP40 PO; -QUET1TAB7 PO; +QUET25TA3 PO; +ROSU40TA4 PO; +TRAM50TA2 PO; +ZETI10TA16 PO; +ZYLO300T6 PO
--- NOTE | 2020-07-27 15:26 | REP ---
INDICATION: PVD,. COMPARISON: None. TECHNIQUE: Bilateral lower extremity arterial Doppler ultrasound. FINDINGS: Ankle brachial indices are normal measured at 1.5 on the right and 1.3 on the left. Mild plaquing is seen bilaterally. No apparent stenosis is seen. Triphasic waveforms are noted throughout the lower extremities except for biphasic waveform pattern of bilaterally in the profundal femoral artery. Right lower extremity arterial Doppler velocity chart: Right ENGINEER FIRST ASSISTANT PSV 128 cm/S Profundal 70 Proximal SFA 94 Mid SFA 95 Distal SFA 70 Popliteal 55 Proximal JULIANE 67 Tibial-peroneal trunk 36 Proximal WORD PROCESSING SUPERVISOR 41 Distal WORD PROCESSING SUPERVISOR 47 Distal JULIANE 71 Left lower extremity arterial Doppler velocity chart: Left ENGINEER FIRST ASSISTANT PSV 101 cm/S Profundal 56 Proximal SFA 87 Mid SFA 85 Distal SFA 64 Popliteal 69 Proximal JULIANE 69 Tibial-peroneal trunk 89 Proximal WORD PROCESSING SUPERVISOR 65 Distal WORD PROCESSING SUPERVISOR 58 Distal JULIANE 59 IMPRESSION: Mild atherosclerotic plaquing. No high-grade stenosis or occlusion seen. <Electronically signed by Salomón Lundberg > 07/27/20 [id number]
== END ==
LOC: M RAD 12:34
PROVIDERS: ATTEND Internal Medicine
DX: I70.213 Atherosclerosis of native arteries of extremities with intermittent claudication, bilateral legs (principal)

== ENCOUNTER → 2020-12-16 | Outpatient (CLI) | payer OTHER ==
[~2020-12-16] MED LIST changes: +OMEP40CA4 PO; -OMEP40CA97 PO; +QUET1TAB17 PO; -QUET25TA3 PO
--- NOTE | 2020-12-16 20:28 | REP ---
INDICATION: PAIN. COMPARISON: None. TECHNIQUE: Single weight-bearing AP view of the right and left knee. FINDINGS: Early advanced degenerative changes appear relatively symmetric bilaterally including near complete joint space obliteration of the medial compartments, cortical irregularities and osteophyte formation. IMPRESSION: Relatively symmetric early advanced degenerative changes. <Electronically signed by Masood Bah > 12/16/202024
--- NOTE | 2020-12-16 20:30 | REP ---
INDICATION: PAIN. COMPARISON: None. TECHNIQUE: [place] and weight-bearing lateral views of the right knee. FINDINGS: Advanced tricompartmental osteoarthritic degenerative changes include cortical irregularity/osteophyte formation, periarticular sclerosis and joint space narrowing along with mild generalized soft tissue swelling. Lateral view cannot exclude small suprapatellar effusion. No evidence for acute fracture or dislocation. IMPRESSION: Advanced tricompartmental osteoarthritic degenerative changes. <Electronically signed by Masood Bah > 12/16/202026
== END ==
LOC: M SOG 13:59
PROVIDERS: ATTEND Orthopaedic Surgery Adult Reconstructive Orthopaedic Surgery
DX: M25.569 Pain in unspecified knee (principal)

== ENCOUNTER 2021-01-01 13:51 | Outpatient (RCR) | payer OTHER | END 2021-01-28 | LOC: M PT 13:51 | PROVIDERS: ATTEND Orthopaedic Surgery Adult Reconstructive Orthopaedic Surgery | DX: Z01.818 Encounter for other preprocedural examination (principal) ==

== ENCOUNTER → 2021-02-16 | Outpatient (CLI) | payer OTHER ==
[~2021-02-16] MED LIST changes: -CYMB60CA3 PO; +CYMB60CA4 PO
--- NOTE | 2021-02-16 16:07 | REP ---
INDICATION: KRISTYN OA LT KNEE. COMPARISON: None. TECHNIQUE: Helical technique using 3 x 3 mm increments and reconstructed in both sagittal and coronal planes. Juan protocol utilized FINDINGS: At the left hip: There is rather mild symmetric appearing joint space narrowing. The femoral head is spherical in shape. There is no prominent marginal osteophytosis. There is no fracture, dislocation, or subluxation. There is no evidence of subchondral sclerosis or subchondral cyst formation. At the knee: There is tricompartmental marginal osteophytosis. There is medial compartmental narrowing with subchondral sclerosis and evidence of tiny subchondral cyst formation in the medial tibial plateau region. There is air density within the medial compartment. There is mild to moderate asymmetric patellofemoral joint space narrowing. There is no evidence of subchondral sclerosis or definite subchondral cyst formation. At the ankle: The mortise is intact. There is no subchondral sclerosis or subchondral cyst formation. There is no evidence of osteophytosis. IMPRESSION: Degenerative changes seen particularly at the knee as described above. The air density in the medial compartment could be secondary to acute meniscal injury. This should be correlated clinically. Other findings as described above. <Electronically signed by Yair Diego > 02/16/21 [id number]
== END ==
LOC: M RAD 12:34
PROVIDERS: ATTEND Orthopaedic Surgery Adult Reconstructive Orthopaedic Surgery
DX: M17.0 Bilateral primary osteoarthritis of knee (principal)

== ENCOUNTER → 2021-02-25 | Outpatient (CLI) | payer OTHER | LOC: M LABSMTC 09:14 | PROVIDERS: ATTEND Anesthesiology | DX: Z01.812 Encounter for preprocedural laboratory examination (principal); Z20.822 Contact with and (suspected) exposure to COVID-19 ==

== ENCOUNTER → 2021-03-04 | Outpatient (CLI) | payer OTHER | LOC: M LABSMTC 11:46 | PROVIDERS: ATTEND Orthopaedic Surgery Adult Reconstructive Orthopaedic Surgery | DX: Z01.812 Encounter for preprocedural laboratory examination (principal); Z20.822 Contact with and (suspected) exposure to COVID-19 ==

== ENCOUNTER 2021-03-08 09:30 | Observation (INO) | payer OTHER, MEDICARE ==
[~2021-03-08] VITALS: Ht 175.3 cm; Wt 117.5 kg
[~2021-03-08 09:30] MED LIST changes: +ACETAMINOPHEN 500 MG TAB PO ONE; +LR 1,000 ML IV ONE; +NAPROXEN 250 MG TAB PO ONE; +NS 1,000 ML IV ONE; +PREGABALIN 25 MG CAP (LYRICA) PO ONE; +ROPIVA 125MG/EPINEPH 0.25MG/CLONID 40MCG/KETOR 15MG IN NS 50ML SYRINGE PA ONE; +TRANEXAMIC ACID INJection 1,000 MG in NS 50 ML IV ONE; +dexameTHASONE 4 MG/ML 1ML VIAL (J1100 PER 1MG) IV ONE
--- OUTSIDE RECORDS SUMMARY | 2021-03-08 09:34 | CCD | Continuity of Care Document ---
Author Shelton Pratt MD Organization Unknown Address [address] , [place] [address] Phone [phone] Care Team Providers Care Roaster Operator Name Role Phone Campbell Kaplan M.D. AUTM [phone] AUTM Unavailable Problems Active Problems Provider Date Essential hypertension Shelton Sexton M.D. Onset: 0 Allergic asthma without status asthmaticus Asa Triplett Onset: 04/06/2020 Social History Type Date Description Comments Sex Unknown ETOH Use Denies alcohol use Recreational Drug Use Denies Drug Use Tobacco Use Start: Unknown End: Unknown Patient is a former smoker quit 1999 3 packs per day Smoking Status Reviewed: 12/16/20 Patient is a former smoker qu it 1999 3 packs per day Allergies, Adverse Reactions, Alerts Active Allergies Criticality Reaction | Severity Comments Date Penicillin V Unable to assess criticality SWELLING, RASH 04/06/2020 Codeine Unable to assess criticality RASH 04/06/2020 Propoxyphene Unable to assess criticality 04/06/2020 Medications Active Medications SIG Qnty Indications Ordering Provide r Date Flagyl 500mg Tablets 1 tab by mouth @ 2p & 10p day before surg 1 tab by mouth @ 6am morning of surg 3tabs Shelton Sexton M.D. 04/16/2020 Neomycin Sulfate 500mg Tablets 2 by mouth @ 2 & 10p day before surgery, 2 by mouth @ 6am morning of surgery 6tabs Shelton Sexton M.D. 04/16/2020 Docusate Sodium 100mg Capsules 1 cap po bid 60caps Shelton Sexton M.D. 04/06/2020 Multi Vitamin Tablets 2 by mouth every day Shelton Sexton M.D. 04/06/2020 Rosuvastatin Calcium 40mg Tablets once a day Unknown Omeprazole 20mg Capsules DR 2 caps po before breakfast Unknown Sucralfate 1gm Tablets take 1 tablet by mouth tid.(may dissolve in warm water if you have trouble swallowing) Unknown Flomax 0.4mg Capsules 1 cap p o qhs Unknown Tramadol HCL 50mg Tablets 1 tab po bid qhs prn Unknown Pregabalin 75mg Capsules 1 cap po bid prn Unknown Quetiapine Fumarate 50mg Tablets 1 tab po tid Unknown Mirtazapine 15mg Tablets 1 tab po qd at noon and qhs Unknown Allopurinol 300mg Tablets 1 tab po before breakfast Unknown Budesonide/Formoterol Fumarate Dihydrate 160-4.5mcg/Act Aerosol inhale two puffs prn Unknown Buspirone HCL 15mg Tablets 1 tab po qd Unknown Ferrous Sulfate 324(65Fe) mg Table ts DR 1 tab po qd Unknown Lisinopril 10mg Tablets 1/2 t ab qhs Unknown Metoprolol Succinate ER 25mg Tablets ER 24HR 1 tab po bid Unknown Pregabalin 150mg Capsules 1 cap by mouth twice a day Unknown Prazosin HCL 2mg Capsules 1 cap at qhs DO Not Take On Days Taking Sidenafil Unknown Montelukast Sodium 10mg Tablets 1 by mouth every day before breakfast Unknown Ketoconazole 2% Cream apply tid for fungal infection Unknown Fluocinonide 0.05% Cream apply tid for fungal infection Unknown Famotidine 20mg Tablets 1 tab by mouth before dinner prn Unknown Ezetimibe 10mg Tablets 1 tab po qd Unknown Duloxetine HCL 60mg Caps DR Part 1 cap po qd Unknown Diclofenac Sodium 1% Gel a pply qid prn Unknown Aspirin [address] take 1 tab by mouth daily Unknown Ammonium Lactate 12% Cream ap ply bid Unknown Albuterol Sulfate (2 .5mg/3ML) 0.083% Nebulizer q4h prn Unknown Albuterol Sulfate HFA 108(90Base) mcg/Act Aerosol inhale two puffs by mouth four times a day as needed Unknown Clonazepam 0.5mg Tablets 2 ta bs po qd Unknown Isosorbide Mononitrate ER 60mg Tablets ER 24HR 1 by mouth every day Unknown 000 Immunizations Description No Information Available Vital Signs Date Vital Result Comment 12/16/2020 1:34pm Body Temperature 97.6 F Height 69 inches 5'9" Weight 250.00 lb BMI (Body Mass Index) 36.9 kg/m2 [place] Body Weight 160 lb Weight 113.400 kg BSA (Body Surface Area) 2.27 m2 04/06/2020 11:30am BP Systolic 156 mmHg BP Diastolic 88 mmHg Height 69 inches 5'9" Weight 269.50 lb BMI (Body Mass Index) 39.8 kg/m2 [place] Body Weight 160 lb Weight 122.245 kg BSA (Body Surface Area) 2.35 m2 Results Description No Information Available Procedures Date Code Description Status 12/16/2020 91538 Office/Outpatient New Moderate M DM 45-59 Minutes Completed Medical Devices Description No Information Available Encounters Type Date Location Provider Dx Diagnosis Office Visit 12/16/2020 2:00p [facility] Tanmay Merrill MD M17.0 Bilateral primary osteoarthritis of knee Assessments Date Code Description Provider 12/16/2020 M17.0 Bilateral osteoarthritis of knee s Tanmay Merrill MD Plan of Treatment 12/16/2020 - Tanmay Merrill MD* M17.0 Bilateral osteoarthritis of knees* Comments:* Patient demonstrates bilateral knee osteoarthritis with the left being the most symptomatic to a small degree compared to the right. We have discussed a left total knee arthroplasty. The patient has consented to this.I did explain to the patient that a total joint replacement procedure is an elective procedure. Candidacy for the procedure is based on imaging and the patient's symptoms and whether or not the patient would like to proceed with the surgery. The procedure is performed for pain relief only. Any other gains are secondary. The risks of the procedure include but are not limited to infection, periprosthetic fracture, damage to local neurovascular or soft tissue structures, deep vein thrombosis or pulmonary emboli, and need for revision surgery. Anesthetic risks will be discussed with the anesthesiologist. These include but are not limited to, heart attack, stroke and .Total knee arthroplasty patients typically fall into 3 categories of outcomes. Approximately 85% of patients are happy with the results and would have the surgery performed, again without any concerns. Approximately 10-15% o f patients are happy with the results and would have the surgery performed. Again, but may have some persistent aches and pains or other symptoms. These patients typically have had a fracture of bone around the joint or the F had an open surgical procedure or infection around the joint. Approximately 1% of patients have the joint replacement procedure performed and did not experience any alleviation or sometimes worsening of her symptoms. If there is no identifiable cause of their persistent or worsening symptoms, then there is nothing that can be done. If there is no obvious cause of pain or discomfort, it can take a prolonged period of time in determining cause, if any, is the early period for a total joint replacement is approximately 1 year whereas the early period for most surgical intervention to 6 weeks.The patient is aware that the surgery will be planned to be performed with the mangof[employer] jobs robotic for assistanceThe patient is aware that he has had an increased risk of complication associated with his history of diabetes and coronary artery bypass grafting x2. He will require cardiology clearanceWe'll move forward with the booking process * Follow up:* Booking left total knee arthroplasty Functional Status Description No Information Available Mental Status Description No Information Available Referrals Description No Information Available
--- OUTSIDE RECORDS SUMMARY | 2021-03-08 09:34 | CCD | Continuity of Care Document ---
Author Author Shelton JONES M.D. Organization Unknown Address [address] [place] [address] Phone [phone] Care Team Providers Care Mirror Specialist Name Role Phone Dominik Esposito MD [facility] [phone] Problems Active Problems Provider Date Screening for malignant neoplasm of colon David barrios M.D. Onset: 03/05/2020 Social History Type Date Description Comments Sex Unknown ETOH Use Denies alcohol use Tobacco Use Start: Unknown Patient has never smoked Allergies and adverse reactions Active Allergies Criticality Reaction | Severity Comments Date Propoxyphene Unable to assess criticality 03/05/2020 Hydrocodone Unable to assess criticality 03/05/2020 Naprosyn Unable to assess criticality 03/05/2020 Nicotinic Acid Propyl Trish Unable to assess criticality 03/05/2020 Penicillin V Unable to assess criticality 03/05/2020 Percocet Unable to assess criticality 03/05/2020 Medications Active Medications SIG Qnty Indications Ordering Provide r Date Suprep Bowel Prep Kit 17.5-3.13-1.6GM/177ML Solution use as directed 354ml David Jones M.D. 02/23/2021 Metoprolol Succinate ER 25mg Tablets ER 24HR Unknown Methylprednisolone 4mg Tablets Unknown Azithromycin 250mg Tablets Unknown Tramadol HCL 50mg Tablets Unknown Tamsulosin HCL 0.4mg Capsules Unknown Sucralfate 1gm Tablets Unknown Rosuvastatin Calcium 40mg Tablets Unknown Quetiapine Fumarate 50mg Tablets Unknown Pregabalin 25mg Capsules Unknown Prazosin HCL 2mg Capsules Unknown Phenylephrine HCL 2.5% Solution Unknown Omeprazole 20mg Capsules DR Unknown Multiple Vitamin Tablets Unknown Montelukast Sodium 10mg Tablets Unknown Lisinopril 10mg Tablets Unknown Fluocinonide 0.05% Cream Unknown Ferrous Sulfate 324(65Fe) mg Table ts DR 1 by mouth every day Unknown Ezetimibe-Simvastatin 10-10mg Tablets Unknown Duloxetine HCL 60mg Caps DR Part Unknown Docusate Sodium 100mg Capsules Unknown Diclofenac Sodium 1% Gel Unknown Bupropion Hydrochloride ER (SR) 150mg Tablets ER 12HR Unknown Budesonide 0.25mg/2ML Suspension Unknown Aspirin Adult Low Dose 81mg Tablets DR Unknown Ammonium Lactate 12% Lotion Unknown Albuterol Sulfate (2 .5mg/3ML) 0.083% Nebulizer Unknown Immunizations Description No Information Available Vital Signs Date Vital Result Comment 02/23/2021 2:36pm Height 69 inches 5'9" Weight 253.00 lb BP Systolic 131 mmHg BP Diastolic 81 mmHg Heart Rate 57 /min BMI (Body Mass Index) 37.4 kg/m2 Weight 114.761 kg Body Temperature 97.9 F 03/05/2020 10:01am Height 69 inches 5'9" Weight 269.00 lb BP Systolic 128 mmHg BP Diastolic 79 mmHg Heart Rate 64 /min BMI (Body Mass Index) 39.7 kg/m2 Weight 122.018 kg Body Temperature 97.5 F Results Description No Information Available Procedures Description No Information Available Medical Devices Description No Information Available Encounters Description No Information Available Assessments Date Code Description Provider 02/23/2021 Z85.038 History of malignant neoplasm of colon David Jones M.D. Plan of Treatment Future Appointment(s):* 04/28/2021 6:45 am - Ad at Main Office * 05/12/2021 9:30 am - David Jones M.D. at Main Office 02/23/2021 - David Jones M.D.* Z85.038 History of malignant neoplasm of colon* Comments:* 71 yo wm who presents for a colonoscopy due to a h/o colon cancer in 2020. Last scope was in 2019. No c/o abdominal pain, weight loss, change in bowel habits, or rectal bleeding. No family h/o colon cancer. No h/o chest pain, or sob. Plan:1. Schedule for Colonoscopy.2. Informed consent given.3. Pt. advised to stop asa,plavix, coumadin, and pradaxa 3 to 7 days before the procedure. Functional Status Description No Information Available Mental Status Description No Information Available Referrals Refer to Reason for Referral Status Appt Date David Jones M.D. Created [address] [place] [address] [phone]
--- OUTSIDE RECORDS SUMMARY | 2021-03-08 09:34 | CCD | Continuity of Care Document ---
Author Author Shelton JONES M.D. Organization Unknown Address [address] [place] [address] Phone [phone] Care Team Providers Care Sales Facilitator Name Role Phone Dominik Esposito MD [facility] [phone] Problems Active Problems Provider Date Screening for [...] Appt Date David Jones M.D. Created [address] [place] [address] [phone]
--- OUTSIDE RECORDS SUMMARY | 2021-03-08 09:34 | CCD | Continuity of Care Document ---
Author Author Shelton JONES M.D. Organization Unknown Address [address] [place] [address] Phone [phone] Care Team Providers Care Cuff Folder Name Role Phone Dominik Esposito MD [facility] [phone] Problems Active Problems Provider Date Screening for [...] Appt Date David Jones M.D. Created [address] [place] [address] [phone]
--- OUTSIDE RECORDS SUMMARY | 2021-03-08 09:34 | CCD | Continuity of Care Document ---
Author Author Shelton OVIEDO MD Organization Unknown Address [address] , [place] [address] Phone [phone] Care Team Providers Care Hog Trader Name Role Phone Campbell Kaplan M.D. [facility] [phone] [facility] Unavailable Problems Active Problems Provider Date [...] day Allergies, Adverse Reactions, Alerts Active Allergies Reaction Severity Comments Date Penicillin V SWELLING, RASH 04/06/2020 Codeine RASH 04/06/2020 Propoxyphene 04/06/2020 Medications Active Medications SIG Qnty Indications [...] lb BMI (Body Mass Index) 36.9 kg/m2 [place] Body Weight 160 lb Weight 113.400 kg BSA (Body Surface Area) 2.27 m2 04/06/2020 11:30am BP Systolic 156 mmHg BP Diastolic 88 mmHg Height 69 inches 5'9" Weight 269.50 lb BMI (Body Mass Index) 39.8 kg/m2 [place] Body Weight 160 lb Weight 122.245 kg BSA (Body Surface Area) 2.35 m2 Results Description No Information Available Procedures Description No Information Available Medical Devices Description No Information Available Encounters Description No Information Available Assessments Date Code Description Provider 12/16/2020 M17.0 Bilateral osteoarthritis of knee s Tanmay Oviedo MD Plan of Treatment 12/16/2020 - Tanmay Oviedo MD* M17.0 Bilateral osteoarthritis of knees* Comments:* [...] be planned to be performed with the [employer] robotic for assistanceThe patient is aware that [...]
--- OUTSIDE RECORDS SUMMARY | 2021-03-08 09:34 | CCD ---
Author Author [facility] Organization [facility] Address Unknown Phone Unavailable Care Team Providers Care Legal Paraprofessional Name Role Phone Sujit Jones MD Unavailable Unavailable Sujit Jones MD Unavailable Unavailable Sujit Jones MD Unavailable Unavailable Sujit Jones MD Unavailable Unavailable Sujit Jones MD Unavailable Unavailable Sujit Jones MD Unavailable Unavailable Sujit Jones MD Unavailable Unavailable Sujit Jones MD Unavailable Unavailable Sujit Jones MD Unavailable Unavailable Sujit Jones MD Unavailable Unavailable Sujit Jones MD Unavailable Unavailable Sujit Jones MD Unavailable Unavailable Sujit Jones MD Unavailable Unavailable Sujit Jones MD Unavailable Unavailable Sujit Jones MD Unavailable Unavailable Sujit Jones MD Unavailable Unavailable Sujit Jones MD Unavailable Unavailable Sujit Jones MD Unavailable Unavailable Sujit Jones MD Unavailable Unavailable Sujit Jones MD Unavailable Unavailable Sujit Jones MD Unavailable Unavailable Sujit Jones MD Unavailable Unavailable Sujit Jones MD Unavailable Unavailable Sujit Jones MD Unavailable Unavailable Sujit Jones MD Unavailable Unavailable Sujit Jones MD Unavailable Unavailable Sujit Jones MD Unavailable Unavailable Sujit Jones MD Unavailable Unavailable Sujti Jones MD Unavailable Unavailable Sujit Jones MD Unavailable Unavailable Karen, S David MD Unavailable Unavailable Karen, S David MD Unavailable Unavailable Karen, S David MD Unavailable Unavailable Karen, S David MD Unavailable Unavailable Karen, S David MD Unavailable Unavailable Karen, S David MD Unavailable Unavailable Karen, S David MD Unavailable Unavailable Karen, S David MD Unavailable Unavailable Karen, S David MD Unavailable Unavailable Karen, S David MD Unavailable Unavailable Karen, S David MD Unavailable Unavailable Karen, S David MD Unavailable Unavailable Karen, S David MD Unavailable Unavailable Karen, S David MD Unavailable Unavailable Karen, S David MD Unavailable Unavailable Karen, S David MD Unavailable Unavailable Karen, S David MD Unavailable Unavailable Karen, S David MD Unavailable Unavailable Karen, S David MD Unavailable Unavailable Karen, S David MD Unavailable Unavailable Merrill, Tanmay MD Unavailable Unavailable Merrill, Tanmay MD Unavailable Unavailable Merrill, Tanmay MD Unavailable Unavailable Merrill, Tanmay MD Unavailable Unavailable Merrill, Tanmay MD Unavailable Unavailable Merrill, Tanmay MD Unavailable Unavailable Merrill, Tanmay MD Unavailable Unavailable Merrill, Tanmay MD Unavailable Unavailable Merrill, Tanmay MD Unavailable Unavailable Merrill, Tanmay MD Unavailable Unavailable Re-disclosure Warning The records that you are about to access may contain information from federally-assisted alcohol or drug abuse programs. If such information is present, then the following federally mandated warning applies: This information has been disclosed to you from records protected by federal confidentiality rules (42 CFR part 2). The federal rules prohibit you from making any further disclosure of this information unless further disclosure is expressly permitted by the written consent of the person to whom it pertains or as otherwise permitted by 42 CFR part 2. A general authorization for the release of medical or other information is NOT sufficient for this purpose. The Federal rules restrict any use of the information to criminally investigate or prosecute any alcohol or drug abuse patient.The records that you are about to access may contain highly sensitive health information, the redisclosure of which is protected by Article 27-F of the [facility] Public Health law. If you continue you may have access to information: Regarding HIV / AIDS; Provided by facilities licensed or operated by the [facility] Office of Mental Health; or Provided by the [facility] Office for People With Developmental Disabilities. If such information is present, then the following [facility] mandated warning applies: This information has been disclosed to you from confidential records which are protected by state law. State law prohibits you from making any further disclosure of this information without the specific written consent of the person to whom it pertains, or as otherwise permitted by law. Any unauthorized further disclosure in violation of state law may result in a fine or skilled nursing sentence or both. A general authorization for the release of medical or other information is NOT sufficient authorization for further disc losure. Encounters Encounter Providers Location Date Indications Data Source(s ) Outpatient Attender: Tanmay Fernandes/Ev/Abelardo/Jami sheikh 12/16/2020 02:00:00 PM EDT [facility] ([facility], ) Outpatient Attender: David Jones MD Main Office 03/05/2020 08:30:00 AM EST [facility] ([facility]) Medications Medication Brand Name Start Date Product Form Dose Route Admi nistrative Instructions Pharmacy Instructions Status Indications Reaction Description Data Source(s) Suprep Bowel Prep Kit Suprep Bowel Prep Kit 02/23/2021 12:00:00 AM EDT active [facility]) Metronidazole 500 MG Oral Tablet [Flagyl] Flagyl 04/16/2020 12:00 :00 AM EST ORAL active [facility] ([facility], ) Neomycin Sulfate 500 MG Oral Tablet Neomycin Sulfate 04/16/2020 12:00:00 AM EST ORAL active [facility] ( [facility]) Multi Vitamin 04/06/2020 12:00:00 AM EST ORAL acti ve [facility] ([facility]) Docusate Sodium 100 MG Oral Capsule Docusate Sodium 04/06/2020 1 2:00:00 AM EST ORAL active [facility] ( [facility]) Suprep Bowel Prep Kit Suprep Bowel Prep Kit 03/05/2020 12:00:00 AM EST active [facility] ([facility]) Insurance Providers Payer name Policy type / Coverage type Policy ID Covered democrat ID Covered democrat's relationship to sneed Policy Sneed Plan Information 'S ADMINISTRATION [id number] SP [id number] OPTUM [place] CCN [id number] SP [id number] 05 'S ADMINISTRATION [id number] SP [id number] HUMANA PPO [id number] SP [id number] AARP O [id number] S [id number] HUMANA PPO O [id number] S [id number] [facility] [id number] S [id number] [facility] OPTIONS [id number] SP [id number] COMMERCIAL GENERIC [id number] Marielena 5 [id number] Problems, Conditions, and Diagnoses Code Display Name Description Problem Type Effective Dates Data Source(s) 88031543 Allergic asthma without status asthmatic us Allergic asthma without status asthmaticus Problem 04/06/2020 12:00:00 AM EST [facility] ([facility], ) [id number] Essential hypertension Essential hypertension Problem 04/06/2020 12:00:00 AM EST [facility] ([facility], ) [id number] Screening for malignant neoplasm of colo n Screening for malignant neoplasm of colon Problem 03/05/2020 12:00:00 AM EST [facility]) Surgeries/Procedures Procedure Description Date Indications Data Source(s) OFFICE OUTPATIENT NEW 45 MINUTES 12/16/2020 12:00:00 A M EDT [facility] ([facility], ) UPPER NDSC BIOPSY SINGLE/MULTIPLE 03/30/2020 12:00:00 AM EST [facility] ([facility]) COLSC FLX PROX SPLENIC FLXR RMVL LES SNARE TQ 03/30/20 20 12:00:00 AM EST [facility] ([facility]) Results ID Date Data Source [id number] 03/04/2021 11:55:00 AM EDT [facility] Name Value Range Interpretation Code Description Data Madalyn rce(s) Supporting Document(s) SARS-CoV-2 (COVID-19) RNA [Presence] in Respiratory specimen by ESTHER with probe detection Not Detected [facility] This lab was ordered by [facility] and reported by [employer] ID Date Data Source [id number] 04/22/2020 10:00:00 AM EST [facility] Name Value Range Interpretation Code Description Data Madalyn rce(s) Supporting Document(s) SARS coronavirus 2 RNA [facility] This lab was ordered by [facility] and reported by [facility]. ID Date Data Source [id number] 03/30/2020 08:36:00 AM EST [facility] ([facility]) Name Value Range Interpretation Code Description Data Madalyn rce(s) Supporting Document(s) Surgical pathology study Laboratory test result [facility] ([facility]) FINAL DIAGNOSIS A - Esophagus, below Z line, biopsy: Junctional mucosa with mild chronic inflammation. No evidence for intestinal metaplasia. B - Colon, ascending polyp, biopsy: Adenocarcinoma, moderately differentiated. -4/TR 03/31/2020 - 1151 CLINICAL DIAGNOSIS Heartburn, R/O intestinal metaplasia, screening 03/30/2020 - 1518 GROSS DIAGNOSIS A - Received in formalin labeled "biopsy below Z-line" consists of two fragments of pillai tissue, 0.4 x 0.3 x 0.2 cm in aggregate. All in one. B - Received in formalin labeled "ascending colon polyp" consists of multiple fragments of pillai tissue measuring 1.5 x 0.6 x 0.5 cm in aggregate. All in one. -SV 03/30/2020 - 151 Signed CHRIS BOOTH MD 03/31/2020 1521 ID Date Data Source [id number] 03/25/2020 12:00:00 PM EST [facility] Name Value Range Interpretation Code Description Data Madalyn rce(s) Supporting Document(s) SARS coronavirus 2 RNA [facility] This lab was ordered by [facility] and reported by [facility]. Procedure Social History Code Duration Value Status Description Data Source(s ) Smoking 12/16/2020 12:00:00 AM EDT Patient is a former smoker completed Patient is a former smoker [facility] ([facility], ) Vital Signs ID Date Data Source UNK Name Value Range Interpretation Code Description Data Source(s) Body height 69 [in_i] 69 [in_i] [facility] ([facility]) 5'9" Body weight 253.00 [lb_av] 253.00 [lb_av] [facility] ([facility]) Systolic blood pressure 131 mm[Hg] 131 mm[Hg] M [facility] ([facility]) Diastolic blood pressure 81 mm[Hg] 81 mm[Hg] [facility] ([facility]) Heart rate 57 /min 57 /min [facility] Body mass index (BMI) [Ratio] 37.4 kg/m2 37.4 k g/m2 [facility] ([facility]) Body weight 114.761 kg 114.761 kg [facility] Body temperature 97.9 [degF] 97.9 [degF] [facility] ([facility]) Body temperature 97.6 [degF] 97.6 [degF] [facility] ([facility]) Body height 69 [in_i] 69 [in_i] [facility] 5'9" Body weight 250.00 [lb_av] 250.00 [lb_av] [facility] ([facility]) Body mass index (BMI) [Ratio] 36.9 kg/m2 36.9 k g/m2 [facility] ([facility]) Omar body weight 160 [lb_av] 160 [lb_av] [facility] ([facility]) Body weight 113.400 kg 113.400 kg [facility] ([facility]) Body surface area Derived from formula 2.27 m2 2.27 m2 [facility] ([facility]) Body height 69 [in_i] 69 [in_i] [facility] ([facility]) 5'9" Body weight 269.50 [lb_av] 269.50 [lb_av] [facility] ([facility]) Body mass index (BMI) [Ratio] 39.8 kg/m2 39.8 k g/m2 [facility] ([facility]) Omar body weight 160 [lb_av] 160 [lb_av] [facility] ([facility]) Body weight 122.245 kg 122.245 kg [facility] ([facility]) Body surface area Derived from formula 2.35 m2 2.35 m2 [facility] ([facility]) Systolic blood pressure 156 mm[Hg] 156 mm[Hg] [facility] ([facility]) Diastolic blood pressure 88 mm[Hg] 88 mm[Hg] [facility] ([facility]) Body height 69 [in_i] 69 [in_i] [facility] ([facility]) 5'9" Body weight 269.50 [lb_av] 269.50 [lb_av] [facility] ([facility]) Body mass index (BMI) [Ratio] 39.8 kg/m2 39.8 k g/m2 [facility] ([facility]) Omar body weight 160 [lb_av] 160 [lb_av] [facility] ([facility]) Body weight 122.245 kg 122.245 kg [facility] ([facility]) Body surface area Derived from formula 2.35 m2 2.35 m2 [facility] ([facility]) Body height 69 [in_i] 69 [in_i] [facility] ([facility]) 5'9" Body weight 269.00 [lb_av] 269.00 [lb_av] [facility] ([facility]) Systolic blood pressure 128 mm[Hg] 128 mm[Hg] [facility] ([facility]) Diastolic blood pressure 79 mm[Hg] 79 mm[Hg] [facility] ([facility]) Heart rate 64 /min 64 /min [facility] Body mass index (BMI) [Ratio] 39.7 kg/m2 39.7 k g/m2 [facility] ([facility]) Body weight 122.018 kg 122.018 kg [facility] ([facility]) Body temperature 97.5 [degF] 97.5 [degF] [facility] ([facility])
[2021-03-08] MEDS ORDERED: ceFAZolin SOD 2 GM in IV 1 EA IV ONE (10:15)
[2021-03-08] MEDS: TRANEXAMIC ACID INJection 1,000 MG in NS 50 ML IV ONE (10:15)
[2021-03-08] MEDS ORDERED: ACETAMINOPHEN 500 MG TAB PO ONE (10:15)
[2021-03-08] MEDS ORDERED: NAPROXEN 250 MG TAB PO ONE (10:15)
[2021-03-08] MEDS ORDERED: NS 1,000 ML IV ONE (10:15)
[2021-03-08] MEDS ORDERED: dexameTHASONE 4 MG/ML 1ML VIAL (J1100 PER 1MG) IV ONE (10:15)
[2021-03-08] MEDS ORDERED: PREGABALIN 25 MG CAP (LYRICA) PO ONE (10:15)
[2021-03-08] MEDS ORDERED: METF500T13 PO (10:42)
[2021-03-08] MEDS ORDERED: VANCOMYCIN HCL 1,000 MG, VIAL MATE ADAPTER 1 EACH in NS 250 ML IV ONE (10:50)
[2021-03-08] MEDS ORDERED: TRANEXAMIC ACID 100 MG/ML 10ML VIAL As Ordered ONE (10:51)
[2021-03-08] MEDS ORDERED: ePHEDrine SULFATE 25 MG/5 ML(5MG/ML) SYRINGE As Ordered ONE (11:32)
[2021-03-08] MEDS ORDERED: MIDAZOLAM INJ 2MG/2ML VIAL (J2250 PER 1MG) As Ordered ONE (11:32)
[2021-03-08] MEDS ORDERED: propofoL 500 MG/50 ML VIAL As Ordered ONE ×2 (11:32→12:52)
[2021-03-08] MEDS ORDERED: fentaNYL 100 MCG/2 ML INJECTION (J3010) As Ordered ONE (11:32)
[2021-03-08] MEDS ORDERED: EPINEPHrine INJ 1 MG/ML 1ML AMP As Ordered ONE (11:33)
[2021-03-08] MEDS ORDERED: PHENYLephrine 500MCG 5ML (100MCG/ML) SYRINGE As Ordered ONE ×2 (11:34→11:49)
[2021-03-08] MEDS ORDERED: PHENYLEPHRINE 10MG/ML 1ML VIAL (J2370 PER 1) As Ordered ONE (12:12)
--- NOTE | 2021-03-08 14:03 | ROOPDOC ---
[facility] Report Of Operation Report of Operation DATE OF PROCEDURE: 03/08/21 PREPROCEDURE DIAGNOSES: Left knee osteoarthritis POSTPROCEDURE DIAGNOSES: Left knee osteoarthritis PROCEDURE PERFORMED: Left [facility] total knee SURGEON: Ja Oviedo MD PLASTIC MOLDER: Shira Bowen PA-C ANESTHESIA: Spinal. ESTIMATED BLOOD LOSS: Approximately less than 150 mL. COMPLICATIONS: No known complications. REMARKS: Patient was seen in the preoperative area and the left knee was marked. Consent was reviewed for the Juan left total knee arthroplasty as well. Risks and benefits were discussed as previously described. Components: [employer] triathlon system press-fit 38 mm patella Size 6 tibia and size 7 femur CR 9 mm CS polyethylene CS poly was utilized to compensate for the patient having rheumatoid arthritis with the CR femur FINDINGS: Tricompartmental osteoarthritis left knee SPECIMENS REMOVED: None PROCEDURE NOTE: The patient was seen in the preoperative area and her status was updated. [facility] plan was reviewed prior to surgery and adjusted appropriately. DESCRIPTION OF PROCEDURE: Patient was taken to the operating room and after a checklist was performed, the underwent a spinal anesthetic. The patient was then placed supine. The operative leg was then cleansed with chlorhexidine wash followed by 2 times alcohol swab followed by hydrogen peroxide wash. 2 chlorhexidine prep once were then used to clean the leg. The operative extremity was then prepped and draped in the standard sterile fashion. This was done utilizing the Tizaro leg mckeon device. A surgical pause was then carried out followed by the surgical safety checklist. 2 stab hole incisions were made approximately 4 fingerbreadths below the tibial tubercle of the left knee for the tibial array pins which were placed. The midline incision over the knee followed by the medial arthrotomy was then carried out. Cautery was used to control bleeders. The soft tissue and fat pad were removed using electrocautery. The femoral array pins were then placed in the medial femoral condyle. The arrays were then placed over the array pins and these were marked to be the trackers for the tibia and femur. The hip center was checked followed by the medial and lateral condyles of the a nkle. The registration of the femur and tibia then occurred using the arrays in the Juan system. Osteophytes were removed at this point, as needed. The leg was then brought into extension and varus and valgus stresses were applied in extension and spoons were used for tensioning as well as a [place] in flexion of approximately 95 degrees. Once the soft tissue adjustments were made to the Juan plan, the plan was carried out utilizing the robot. The 90 degree blade cuts were made first followed by the straight blade cuts. Once all the cuts were completed with the assistance of the Juan robot, the rongeur and osteotome were used to remove the bone segments. A lamina central service tech was used to help remove the medial lateral menisci remnants followed by a curved osteotome to remove any posterior osteophytes from the medial or lateral femoral condyles. A trial femur was placed and secured with a pin. The tibial component was then placed with a 9 mm polyinsert. This was brought into extension and found to be tight so an additional millimeter of distal tibia was removed. This was retrialed and there was appropriate stability in both flexion and extension. The leg was then brought into extension and the patella was measured using the caliper. A freehand cut using towel clips was used to remove the patellar surface. This was then clamped and reamed appropriately for the press-fit components. A trial was placed and taken through range of motion and found to be nice and stable. The tibia was then appropriately positioned with the correct amount of rotation lined up with the medial third of the tibial tubercle. This was pinned and the keel punch was completed followed by the four-point reaming for the press-fit component. The CR femur had the lug holes drilled. The RE CK local anesthetic cocktail was instilled in the standard fashion. The wound was thoroughly irrigated with pulse lavage. The tibia was then press-fit in position using the mallet and impactors. The femur was then flexed high and positioned aligning the lug holes. This component was impacted then brought out into 90 degrees and impacted further to avoid anywhere to the metal components. The 9 mm polyethylene insert was then trialed, found appropriate and the final component was placed and impacted. The leg was brought into extension and the press-fit polyethylene patellar component was tightened and impacted utilizing the compression device The leg was taken through stable range of motion. It was thoroughly irrigated. Electrocautery was used to control any bleeders. A layered closure using #1 Vicryl followed by strata fix for the arthrotomy. #1 Vicryl to close down the subcutaneous tissue followed by running subcutaneous 2.0 and then a three-point 0 Monocryl subcuticular stitch antibacterial. Layered irrigation with saline and Betadine occurred. Steri-Strips were applied followed by the Mepilex dressing Patient tolerated the procedure well with no known complications. They were taken to the recovery room in stable condition. The patient will be admitted to the hospitalist service with plan for evaluation with physical therapy and possible discharge home tomorrow. Discharge Instructions Total Knee Arthroplasty 1. Pain: You may take oxycodone as prescribed for pain. Supplement with Naproxen and Tylenol as needed. Ice pack to operative hip as tolerated. 2. Wound care: Remove dressing on postop day 7. Call [phone] with any questions or concerns. Hygiene: The patient may shower. No tub baths. Check dressing seal prior to bathing. 3. Activity: WBAT left lower extremity. Front wheeled walker versus crutches for ambulation. Fall precautions. 4. Driving: No driving until cleared by your surgeon. Do not drive if taking narcotic pain medications as these may make you drowsy. 5. DVT Prophylaxis: Continue taking aspirin 81 mg p.o. twice daily as prescribed for the prevention of blood clots. Ankle pumps every 1 hour while awake. KEKE hose at all times for 1 month after surgery. May remove for hygiene and wound care. 6. Placement: Plan is to discharge patient to home with home health including nursing and physical therapy. 7. Surgeon Follow-up: The patient is scheduled to be seen in Dr. Oviedo's office 2 weeks post op with xrays. 8. Primary care Follow-up: Please see your primary care provider in the next 2 to 5 weeks for general medical re-evaluation and medication review. 9. Labs: CBC without differential postop day 3 with results to PCP and please fax to [phone]. 10. Please contact [facility] if you have any questions or concerns at [phone]. JA OVIEDO MD Mar 08, 2021 14:03
[2021-03-08] MEDS ORDERED: LR 1,000 ML IV SCH ×2 (14:15→14:20)
[2021-03-08] MEDS ORDERED: ONDANSETRON 4MG/2ML VIAL IV PRN ×2 (14:15→14:25)
[2021-03-08] MEDS ORDERED: fentaNYL 100 MCG/2 ML INJECTION (J3010) IV PRN (14:15)
[2021-03-08] MEDS ORDERED: MORPHINE 2 MG/ML 1ML VIAL (J2270) IV PRN (14:15)
[2021-03-08] MEDS ORDERED: oxyCODONE 5MG TAB PO PRN ×2 (14:15→14:25)
--- NOTE | 2021-03-08 14:19 | REP ---
INDICATION: post op COMPARISON: 11/27/2020 a pre operative exam TECHNIQUE: AP and lateral views FINDINGS: Since the last examination a total knee arthroplasty has been placed the tibial and femoral components of which appear well seated and well approximated. The alignment is near anatomical. There is expected postoperative soft tissue swelling. IMPRESSION: Status post TKR as described above. <Electronically signed by Yair Diego > 03/08/21 [id number]
[2021-03-08] MEDS ORDERED: SENNA 8.6 MG TAB (SENOKOT) PO PRN (14:25)
[2021-03-08] MEDS ORDERED: traMADol 50 MG TAB PO PRN (14:25)
[2021-03-08] MEDS ORDERED: clonazePAM 0.5 MG TAB PO PRN (14:40)
[2021-03-08] MEDS ORDERED: ALBUTEROL 90 MCG/ACT 8GM HFA INHALER INH PRN (14:40)
[2021-03-08 14:45] VITALS: BP 146/78
[2021-03-08 14:50] LABS: HEMATOCRIT 38.9 % (42.0-52.0); HEMOGLOBIN 12.2 g/dl (13.5-17.5); MEAN CORPUSCULAR HEMOGLOBIN 27.6 pg (27.0-33.0); MEAN CORPUSCULAR HGB CONC 31.4 g/dl (32.0-36.5); PLATELET COUNT, AUTOMATED 194 10^3/uL (150-450); RED BLOOD COUNT 4.42 10^6/uL (4.30-6.10); WHITE BLOOD COUNT 6.1 10^3/uL (4.0-10.0)
[2021-03-08 14:59] LABS: INR 0.98; PROTHROMBIN TIME 13.4 SECONDS (12.7-14.5)
--- NOTE | 2021-03-08 15:02 | HPEPDOC ---
General Date of Admission Mar 08, 2021 Date of Service: Mar 08, 2021 Chief Complaint The patient is a 71-year-old male admitted with a reason for visit of Left Knee Osteoarthritis. Source: Patient History of Present Illness Mr. Goodrich is a 71 year old male with coronary artery disease status post CABG and osteoarthritis who presents after elective left total knee replacement for left knee osteoarthritis. Patient was seen after surgery. He felt well. He denies any fever or chills, chest pain, dyspnea, abdominal pain, diarrhea, or dysuria. He had no further questions or concerns. Home Medications Scheduled Allopurinol (Zyloprim) 300 Mg Tablet, 300 MG PO DAILY, (Reported) Aspirin (Aspirin EC) 81 Mg Tab, 81 MG PO DAILY, (Reported) Budesonide/Formoterol (Symbicort 160-4.5 Mcg Inhaler) 60 Puff/Inhaler Aers, 2 PUFF INH BID, (Reported) Buspirone HCl (Buspirone HCl) 10 Mg Tablet, 10 MG PO BID, (Reported) Docusate Sodium (Colace) 100 Mg Cap, 100 MG PO BID, (Reported) Duloxetine Hcl (Cymbalta) 60 Mg Cap, 60 MG PO DAILY, (Reported) TAKES AT NOON Ezetimibe (Zetia) 10 Mg Tablet, 10 MG PO QHS, (Reported) Ferrous Sulfate (Ferrous Sulfate) 325 Mg Tab, 325 MG PO DAILY, (Reported) TAKES AT NOON Isosorbide Mononitrate (Isosorbide Mononitrate ER) 60 Mg Tab.er.24h, 60 MG PO DAILY, (Reported) @ NOON Lisinopril (Lisinopril) 10 Mg Tablet, 5 MG PO QHS, (Reported) Metformin HCl (Metformin HCl) 500 Mg Tablet, 500 MG PO BID, (Reported) Metoprolol Tartrate (Metoprolol Tartrate) 25 Mg Tab, 25 MG PO BID, (Reported) Mirtazapine (Mirtazapine) 45 Mg Tab.rapdis, 45 MG PO QHS, (Reported) Montelukast Sodium (Montelukast Sodium) 10 Mg Tablet, 10 MG PO DAILY, (Reported) Multivit-Minerals/Folic Acid (Adult Multivitamin Gummies) 1 Chw Chw, 1 TAB PO BID, (Reported) Omeprazole (Omeprazole) 40 Mg Capsule.dr, 40 MG PO DAILY, (Reported) Prazosin HCl (Prazosin HCl) 2 Mg Capsule, 2 MG PO QHS, (Reported) Pregabalin (Lyrica) 150 Mg Capsule, 150 MG PO BID, (Reported) Rosuvastatin Calcium (Rosuvastatin Calcium) 40 Mg Tablet, 40 MG PO DAILY, (Reported) @ 1200 Sucralfate (Carafate) 1 Gm Tab, 1 GM PO TID, (Reported) Tamsulosin HCl (Flomax) 0.4 Mg Cap, 0.4 MG PO DAILY, (Reported) TAKES AT NOON Scheduled PRN Albuterol Sulfate (Ventolin Hfa) 18 Gm Hfa.aer.ad, 2 PUFFS INH QID PRN for SOB/WHEEZING, (Reported) Clonazepam (Clonazepam) 0.5 Mg Tablet, 0.5 MG PO BID PRN for ANXIETY/AGITATION, (Reported) Tramadol HCl (Tramadol HCl) 50 Mg Tablet, 50 MG PO Q6H PRN for PAIN, (Reported) Allergies Coded Allergies: Penicillins (Verified Allergy, Severe, DIFFICULTIES BREATHING, AND FACIAL SWELLING, 04/15/20) propoxyphene (Verified Allergy, Severe, DIFFICULTIES BREATHING, AND FACIAL SWELLING, 04/15/20) hydrocodone (Verified Adverse Reaction, Mild, FLUSHED-REACTION TO "CODONES", 04/27/20) Past Medical History Medical History 1. Hypertension 2. Hyperlipidemia 3. Depression 4. Anxiety 5. Coronary artery disease 6. COPD 7. Obstructive sleep apnea 8. Rheumatoid arthritis 9. Osteoarthritis 10. Obesity Surgical History 1. Tonsillectomy 2. Left shoulder surgery 3. Neck surgery 4. Coronary artery bypassed 5. Inguinal hernia repair as a child Family History Father: History of hypertension, heart disease, and cancer Mother: History of hypertension and heart disease Social History * Smoker: former Smoker Alcohol: sober Drugs: denies A-FIB/CHADSVASC A-FIB History Current/History of A-Fib/PAF?: No Review of Systems Constitutional: Denies: Chills, Fever Eyes: Denies: Vision change ENT: Denies: Sore Throat Skin: Denies: Rash Pulmonary: Denies: Dyspnea Cardiovascular: Denies: Chest Pain Gastrointestinal: Denies: Abdominal Pain, Diarrhea Genitourinary: Denies: Dysuria Hematologic: Denies: Bruising Neurological: Reports: Other Symptoms (Paresthesias in the legs bilaterally) Psych: Denies: Anxiety, Depression Physical Examination General Exam: Positive: Alert, Cooperative Eye Exam: Positive: EOMI; Negative: Sclera icteric ENT Exam: Positive: Atraumatic Neck Exam: Positive: Supple Chest Exam: Positive: Clear to auscultation; Negative: Rales, Rhonchi, Wheezing Heart Exam: Positive: Rate Normal, Regular Rhythm Abdomen Exam: Positive: Normal bowel sounds, Soft; Negative: Tenderness Extremity Exam: Negative: Edema Neuro Exam: Positive: Normal Speech, Cranial Nerves 3-12 NL Psych Exam: Positive: Mental status NL, Mood NL, Oriented x 3, Other (In good spirits) Vital Signs Vital Signs Date Time Temp Pulse Resp B/P (MAP) Pulse Ox O2 Delivery O2 Flow Rate FiO2 03/08/21 14:20 67 18 132/69 (90) 96 Room Air 03/08/21 13:53 97.5 Laboratory Data Labs 24H Laboratory Tests 2 03/08/21 10:31: Bedside Glucose (Misc Panel) 107 Assessment/Plan Mr. Goodrich is a 71 year old male with coronary artery disease status post CABG and osteoarthritis who presents after elective left total knee replacement for left knee osteoarthritis. Orthopedic to manage pain and and DVT prophylaxis. PT will be ordered. Plan / VTE VTE Prophylaxis Ordered?: Yes Plan Plan 1. Left leg osteoarthritis Status post left total knee replacement on 03/08/[address] Merrill Patient did well Aspirin 81 mg twice a day for DVT prophylaxis Weightbearing as tolerated We will order PT 2. CAD status post CABG No active chest pain Continue aspirin, Imdur, Lopressor, and rosuvastatin Plan to start lisinopril tomorrow evening 3. COPD Not in exacerbation. COPD stable. Continue albuterol as needed, Symbicort, and montelukast 4. Anxiety and depression Continue buspirone, clonazepam as needed, duloxetine, and mirtazapine 5. BPH Continue tamsulosin 6. Chronic pain Continue Lyrica Other pain meds adjusted by orthopedic surgery 7. Hyperlipidemia Continue rosuvastatin and Zetia 8. DVT prophylaxis Aspirin 81 mg twice daily Disposition: Pending physical therapy evaluation MITCHELL FABIAN DO Mar 08, 2021 15:02
[2021-03-08] MEDS: oxyCODONE 5MG TAB PO PRN ×2 (15:05→20:40)
[2021-03-08 15:15] VITALS: BP 147/81
[2021-03-08 15:16] LABS: ALBUMIN 3.4 GM/DL (3.2-5.2); ALT/SGPT 28 U/L (12-78); BILIRUBIN,TOTAL 0.4 MG/DL (0.2-1.0); BLOOD UREA NITROGEN 10 MG/DL (7-18); CALCIUM LEVEL 8.7 MG/DL (8.8-10.2); CARBON DIOXIDE LEVEL 26 MEQ/L (21-32); CHLORIDE LEVEL 111 MEQ/L (98-107); CREATININE FOR GFR 0.86 MG/DL (0.70-1.30); GLOMERULAR FILTRATION RATE > 60.0 (>42); GLUCOSE, FASTING 118 MG/DL (70-100); POTASSIUM SERUM 4.4 MEQ/L (3.5-5.1); SODIUM LEVEL 142 MEQ/L (136-145); TOTAL PROTEIN 5.9 GM/DL (6.4-8.2)
[2021-03-08 16:15] VITALS: BP 142/77
[2021-03-08] MEDS: ASCORBIC ACID 500 MG TAB PO SCH (17:04)
[2021-03-08] MEDS: SUCRALFATE 1 GM TAB PO SCH (17:04)
[2021-03-08] MEDS: FERROUS SULFATE 325MG TAB PO SCH (17:04)
[2021-03-08] MEDS: ACETAMINOPHEN TAB 650MG DOSE (2X325MG) PO SCH ×2 (17:05→23:56)
[2021-03-08 17:15] VITALS: BP 144/81
--- OUTSIDE RECORDS SUMMARY | 2021-03-08 17:48 | CCD ---
Author Author [facility] Organization [facility] Address Unknown Phone Unavailable Care Team Providers Care Gas Booster Engineer Name Role Phone Sujit Jones MD Unavailable [...] is protected by Article 27-F of the [facility] Public Health law. If you continue you may have access to information: Regarding HIV / AIDS; Provided by facilities licensed or operated by the [facility] Office of Mental Health; or Provided by the [facility] Office for People With Developmental Disabilities. If such information is present, then the following [facility] mandated warning applies: This information has been [...] law may result in a fine or custodial sentence or both. A general authorization for the release of medical or other information is NOT sufficient authorization for further disc losure. Encounters Encounter Providers Location Date Indications Data Source(s ) Outpatient Attender: Tanmay Fernandes/Ev/Abelardo/Jami sheikh 12/16/2020 02:00:00 PM EDT [facility] ([facility], ) Outpatient Attender: David Jones MD Main [...] 12:00 :00 AM EST ORAL active [facility] ([facility], ) Neomycin Sulfate 500 MG Oral Tablet Neomycin Sulfate 04/16/2020 12:00:00 AM EST ORAL active [facility] ( [facility]) Multi Vitamin 04/06/2020 12:00:00 AM EST ORAL acti ve [facility] ([facility]) Docusate Sodium 100 MG Oral Capsule Docusate Sodium 04/06/2020 1 2:00:00 AM EST ORAL active [facility] ( [facility], ) Suprep Bowel Prep Kit Suprep Bowel Prep Kit 03/05/2020 12:00:00 AM EST active [facility] ([facility]) Insurance Providers Payer name Policy type / Coverage type Policy ID Covered democrat ID Covered democrat's relationship to sneed Policy Sneed Plan Information [facility]UM [facility] [id number] SP [id number] 'S ADMINISTRATION [id number] SP [id number] 'S ADMINISTRATION [id number] SP [id number] HU[employer] PPO [id number] SP [id number] AARP O [id number] S [id number] HUMANA PPO O [id number] S [id number] [facility] [id number] S [id number] [facility] OPTIONS [id number] SP [id number] COMMERCIAL GENERIC [id number] Marielena [id number] Problems, Conditions, and Diagnoses Code Display Name Description Problem Type Effective Dates Data Source(s) 72337986 Allergic asthma without status asthmatic us Allergic asthma without status asthmaticus Problem 04/06/2020 12:00:00 AM EST [facility] ([facility], ) [id number] Essential hypertension Essential hypertension Problem 04/06/2020 12:00:00 AM EST [facility] ([facility], ) [id number] Screening for malignant neoplasm of colo n Screening for malignant neoplasm of colon Problem 03/05/2020 12:00:00 AM EST [facility] ([facility]) Surgeries/Procedures Procedure Description Date Indications Data Source(s) OFFICE OUTPATIENT NEW 45 MINUTES 12/16/2020 12:00:00 A M EDT [facility] ([facility], ) UPPER NDSC BIOPSY SINGLE/MULTIPLE 03/30/2020 12:00:00 AM EST [facility] ([facility]) COLSC FLX PROX SPLENIC FLXR RMVL LES SNARE TQ 03/30/20 20 12:00:00 AM EST [facility] ([facility]) Results ID Date Data Source [id number] 03/04/2021 11:55:00 AM EDT [facility] Name Value Range Interpretation Code Description Data Madalyn rce(s) Supporting Document(s) SARS-CoV-2 (COVID-19) RNA [Presence] in Respiratory specimen by ESTHER with probe detection Not Detected [facility] This lab was ordered by [facility] and reported by [employer] ID Date Data Source [id number] 04/22/2020 10:00:00 AM EST [facility] Name Value Range Interpretation Code Description Data Madalyn rce(s) Supporting Document(s) SARS coronavirus 2 RNA [facility] This lab was ordered by [facility] and reported by [facility]. ID Date Data Source [id number] 03/30/2020 08:36:00 AM EST [facility] ([facility]) Name Value Range Interpretation Code Description Data [...] MD 03/31/2020 1521 ID Date Data Source [id number] 03/25/2020 12:00:00 PM EST [facility] Name Value Range Interpretation Code Description Data Madalyn rce(s) Supporting Document(s) SARS coronavirus 2 RNA [facility] This lab was ordered by [facility] and reported by [facility]. Procedure Social History Code Duration Value Status Description Data Source(s ) Smoking 12/16/2020 12:00:00 AM EDT Patient is a former smoker completed Patient is a former smoker [facility] ([facility], ) Vital Signs ID Date Data Source UNK Name Value Range Interpretation Code Description Data Source(s) Body height 69 [in_i] 69 [in_i] [facility] ([facility]) 5'9" Body weight 253.00 [lb_av] 253.00 [lb_av] [facility] ([facility]) Systolic blood pressure 131 mm[Hg] 131 mm[Hg] M [facility] ([facility]) Diastolic blood pressure 81 mm[Hg] 81 mm[Hg] [facility] ([facility]) Heart rate 57 /min 57 /min [facility] ([facility]) Body mass index (BMI) [Ratio] 37.4 kg/m2 37.4 k g/m2 [facility] ([facility]) Body weight 114.761 kg 114.761 kg [facility] ([facility] Body temperature 97.9 [degF] 97.9 [degF] [facility] ([facility]) Body temperature 97.6 [degF] 97.6 [degF] [facility] Body height 69 [in_i] 69 [in_i] [facility] ([facility]) 5'9" Body weight 250.00 [lb_av] 250.00 [lb_av] [facility] ([facility]) Body mass index (BMI) [Ratio] 36.9 kg/m2 36.9 k g/m2 [facility] ([facility]) Thayer body weight 160 [lb_av] 160 [lb_av] [facility] ([facility]) Body weight 113.400 kg 113.400 kg [facility] ([facility]) Body surface area Derived from formula 2.27 m2 2.27 m2 [facility] ([facility]) Body height 69 [in_i] 69 [in_i] [facility] ([facility]) 5'9" Body weight 269.50 [lb_av] 269.50 [lb_av] [facility] ([facility]) Body mass index (BMI) [Ratio] 39.8 kg/m2 39.8 k g/m2 [facility] ([facility]) Thayer body weight 160 [lb_av] 160 [lb_av] [facility] ([facility]) Body weight 122.245 kg 122.245 kg [facility] ([facility]) Body surface area Derived from formula 2.35 m2 2.35 m2 [facility] ([facility]) Systolic blood pressure 156 mm[Hg] 156 mm[Hg] [facility] ([facility]) Diastolic blood pressure 88 mm[Hg] 88 mm[Hg] [facility] Body height 69 [in_i] 69 [in_i] [facility] ([facility]) 5'9" Body weight 269.50 [lb_av] 269.50 [lb_av] [facility] ([facility]) Body mass index (BMI) [Ratio] 39.8 kg/m2 39.8 k g/m2 [facility] ([facility]) Thayer body weight 160 [lb_av] 160 [lb_av] [facility] ([facility]) Body weight 122.245 kg 122.245 kg [facility] ([facility]) Body surface area Derived from formula 2.35 m2 2.35 m2 [facility] ([facility]) Body height 69 [in_i] 69 [in_i] [facility] ([facility]) 5'9" Body weight 269.00 [lb_av] 269.00 [lb_av] [facility] ([facility]) Systolic blood pressure 128 mm[Hg] 128 mm[Hg] M [facility] ([facility]) Diastolic blood pressure 79 mm[Hg] 79 mm[Hg] [facility] ([facility]) Heart rate 64 /min 64 /min [facility] ([facility]) Body mass index (BMI) [Ratio] 39.7 kg/m2 39.7 k g/m2 [facility] ([facility]) Body weight 122.018 kg 122.018 kg [facility] ([facility]) Body temperature 97.5 [degF] 97.5 [degF] [facility] ([facility])
[2021-03-08] MEDS: SYMBICORT 160/4.5MCG INHALER 6GM INH SCH (19:39)
[2021-03-08 19:50] VITALS: BP 169/99
[2021-03-08] MEDS: DOCUSATE SODIUM 100MG CAPSULE PO SCH (20:38)
[2021-03-08] MEDS: PREGABALIN 75 MG CAP(LYRICA) PO SCH (20:38)
[2021-03-08] MEDS: ASPIRIN 81MG ENTERIC TABLET PO SCH (20:38)
[2021-03-08] MEDS: NAPROXEN 250 MG TAB PO SCH (20:39)
[2021-03-08] MEDS: METOPROLOL TART 25 MG TABLET PO SCH (20:39)
[2021-03-08] MEDS: busPIRone 10 MG TAB PO SCH (20:39)
[2021-03-08] MEDS ORDERED: MIRTAZAPINE 15 MG TAB PO SCH (21:00)
[2021-03-08] MEDS ORDERED: EZETIMIBE 10MG TABLET (ZETIA) PO SCH (21:00)
[2021-03-08] MEDS: VANCOMYCIN HCL 1,000 MG, VIAL MATE ADAPTER 1 EACH in NS 250 ML IV SCH (23:56)
[2021-03-09 01:16] VITALS: BP 174/68
[2021-03-09 06:06] VITALS: BP 129/68
[2021-03-09] MEDS: ACETAMINOPHEN TAB 650MG DOSE (2X325MG) PO SCH ×2 (06:41→11:31)
[2021-03-09] MEDS: SYMBICORT 160/4.5MCG INHALER 6GM INH SCH (07:20)
[2021-03-09] MEDS: SUCRALFATE 1 GM TAB PO SCH ×2 (08:16→11:31)
[2021-03-09] MEDS: FERROUS SULFATE 325MG TAB PO SCH (08:17)
[2021-03-09] MEDS: PREGABALIN 75 MG CAP(LYRICA) PO SCH (08:17)
[2021-03-09] MEDS: DOCUSATE SODIUM 100MG CAPSULE PO SCH (08:17)
[2021-03-09] MEDS: busPIRone 10 MG TAB PO SCH (08:17)
[2021-03-09] MEDS: NAPROXEN 250 MG TAB PO SCH (08:17)
[2021-03-09] MEDS: ASCORBIC ACID 500 MG TAB PO SCH (08:17)
[2021-03-09] MEDS: ASPIRIN 81MG ENTERIC TABLET PO SCH (08:17)
[2021-03-09] MEDS: METOPROLOL TART 25 MG TABLET PO SCH (08:18)
--- NOTE | 2021-03-09 08:25 | IPNPDOC ---
Text Note Date of Service The patient was seen on 03/09/21. NOTE POD 1 Left TKA Patient is awake and resting comfortably this morning. States that he has ambulated a couple times with his walker with only minimal pain. States that he is eager to return home. Denies CP or SOB. Bulky dressing intact, taken down. Quarter-sized area of staining noted on distal end of dressing. Grossly NVI to light touch to left foot and ankle. Palpable DP and PT pulses. Moving foot and toes. PACU x-ray imaging shows prosthesis well seated, in position with no obvious complications. Overall patient is doing well, plan for DC home after Hospitalist and PT eval. VS,Fishbone, I+O VS, Fishbone, I+O Laboratory Tests 03/08/21 14:34 Vital Signs Date Time Temp Pulse Resp B/P (MAP) Pulse Ox O2 Delivery O2 Flow Rate FiO2 03/09/21 08:18 94 129/68 03/09/21 08:18 18 Room Air 03/09/21 06:06 98.9 93 I&O- Last 24 Hours up to 6 AM 03/09/21 06:00 Intake Total 2735 ml Output Total 1650 ml Balance 1085 ml RENÉ DIAZ Mar 09, 2021 08:25
[2021-03-09] MEDS ORDERED: MONTELUKAST 10 MG TAB PO SCH (09:00)
[2021-03-09] MEDS ORDERED: allopurinoL 300 MG TAB PO SCH (09:00)
[2021-03-09] MEDS ORDERED: OMEPRAZOLE 20 MG CAP PO SCH (09:00)
[2021-03-09 09:11] LABS: HEMATOCRIT 36.7 % (42.0-52.0); HEMOGLOBIN 11.5 g/dl (13.5-17.5); MEAN CORPUSCULAR HEMOGLOBIN 27.5 pg (27.0-33.0); MEAN CORPUSCULAR HGB CONC 31.3 g/dl (32.0-36.5); MEAN CORPUSCULAR VOLUME 87.8 fl (80.0-96.0); PLATELET COUNT, AUTOMATED 226 10^3/uL (150-450); RED BLOOD COUNT 4.18 10^6/uL (4.30-6.10); WHITE BLOOD COUNT 11.9 10^3/uL (4.0-10.0)
[2021-03-09 09:29] LABS: BLOOD UREA NITROGEN 16 MG/DL (7-18); CALCIUM LEVEL 8.8 MG/DL (8.8-10.2); CARBON DIOXIDE LEVEL 25 MEQ/L (21-32); CHLORIDE LEVEL 110 MEQ/L (98-107); CREATININE FOR GFR 0.94 MG/DL (0.70-1.30); GLOMERULAR FILTRATION RATE > 60.0 (>42); GLUCOSE, FASTING 126 MG/DL (70-100); POTASSIUM SERUM 4.2 MEQ/L (3.5-5.1); SODIUM LEVEL 142 MEQ/L (136-145)
[2021-03-09] MEDS ORDERED: TRAM50TA2 PO (09:38)
[2021-03-09] MEDS ORDERED: OXYC-517 PO (09:38)
[2021-03-09] MEDS ORDERED: ASPI81TA26 PO (09:38)
[2021-03-09] MEDS ORDERED: ASCO50TA PO (09:38)
[2021-03-09] MEDS: VANCOMYCIN HCL 1,000 MG, VIAL MATE ADAPTER 1 EACH in NS 250 ML IV SCH (11:30)
[2021-03-09 11:31] VITALS: BP 129/68
[2021-03-09] MEDS ORDERED: TAMSULOSIN 0.4 MG CAP PO SCH (12:00)
[2021-03-09] MEDS ORDERED: ROSUVASTATIN 10 MG TAB (CRESTOR) PO SCH (12:00)
[2021-03-09] MEDS ORDERED: DULoxetine 30MG CAPSULE (CYMBALTA) PO SCH (12:00)
[2021-03-09] MEDS ORDERED: ISOSORBIDE MON. (IMDUR) 60 MG XR TAB PO SCH (12:00)
--- NOTE | 2021-03-09 13:08 | DS.PDOC ---
Discharge Summary General Date of Admission Mar 08, 2021 at 14:14 Date of Discharge 03/09/21 Discharge Summary PROCEDURES PERFORMED DURING STAY: Left total knee replacement. DISCHARGE DIAGNOSES: Left total knee replacement. SECONDARY DIAGNOSIS: Hypertension Hyperlipidemia Depression Anxiety Coronary artery disease s/p CABG COPD Obstructive sleep apnea Rheumatoid arthritis Osteoarthritis Obesity Diabetes Neuropathic pain Gout BPH Peptic ulcer disease COMPLICATIONS/CHIEF COMPLAINT: Left Knee Osteoarthritis. HOSPITAL COURSE: Mr. Goodrich is a 71 year old male with coronary artery disease status post CABG and osteoarthritis who presents after elective left total knee replacement for left knee osteoarthritis. Patient has been evaluated by PT and has been ambulatin to bathroom. His pain is controlled. He is stable to be discharged home today. Left Knee osteoarthritis Status post left total knee replacement on 03/08/[address] Merrill Aspirin 81 mg twice a day for DVT prophylaxis Weightbearing as tolerated pain control with oxycodone, naproxen and tylenol. CAD status post CABG Continue aspirin, Imdur, Lopressor, and rosuvastatin COPD stable. Continue albuterol as needed, Symbicort, and montelukast Anxiety and depression Continue buspirone, clonazepam as needed, duloxetine, and mirtazapine BPH Continue tamsulosin Chronic pain Continue Lyrica Hyperlipidemia Continue rosuvastatin and Zetia DISCHARGE MEDICATIONS: Please see below. ALLERGIES: Please see below. PHYSICAL EXAMINATION ON DISCHARGE: VITAL SIGNS: Please see below. General Exam: Positive: Alert, Cooperative Eye Exam: Positive: EOMI; Negative: Sclera icteric ENT Exam: Positive: Atraumatic Neck Exam: Positive: Supple Chest Exam: Positive: Clear to auscultation; Negative: Rales, Rhonchi, Wheezing Heart Exam: Positive: Rate Normal, Regular Rhythm Abdomen Exam: Positive: Normal bowel sounds, Soft; Negative: Tenderness Extremity Exam: Negative: Edema Neuro Exam: Positive: Normal Speech, Cranial Nerves 3-12 NL Psych Exam: Positive: Mental status NL, Mood NL, Oriented x 3 LABORATORY DATA: Please see below. ACTIVITY: [As tolerated]. DIET: As tolerated DISCHARGE PLAN: Home DISCHARGE INSTRUCTIONS: 1. Pain: You may take oxycodone as prescribed for pain. Supplement with Naproxen and Tylenol as needed. Ice pack to operative hip as tolerated. 2. Wound care: Remove dressing on postop day 7. Call [phone] with any questions or concerns. Hygiene: The patient may shower. No tub baths. Check dr vidal bolden prior to bathing. 3. Activity: WBAT left lower extremity. Front wheeled walker versus crutches for ambulation. Fall precautions. 4. Driving: No driving until cleared by your surgeon. Do not drive if taking narcotic pain medications as these may make you drowsy. 5. DVT Prophylaxis: Continue taking aspirin 81 mg p.o. twice daily as prescribed for the prevention of blood clots. Ankle pumps every 1 hour while awake. KEKE hose at all times for 1 month after surgery. May remove for hygiene and wound care. 6. Placement: Plan is to discharge patient to home with home health including nursing and physical therapy. 7. Surgeon Follow-up: The patient is scheduled to be seen in Dr. Merrill's office 2 weeks post op with xrays. 8. Primary care Follow-up: Please see your primary care provider in the next 2 to 5 weeks for general medical re-evaluation and medication review. 9. Labs: CBC without differential postop day 3 with results to PCP and please fax to [phone]. 10. Please contact [facility] if you have any questions or concerns at [phone]. DISCHARGE CONDITION: [Stable]. TIME SPENT ON DISCHARGE: 35 minutes. Vital Signs/I&Os Vital Signs Date Time Temp Pulse Resp B/P (MAP) Pulse Ox O2 Delivery O2 Flow Rate FiO2 03/09/21 08:18 94 129/68 03/09/21 08:18 18 Room Air 03/09/21 06:06 98.9 93 I&O- Last 24 Hours up to 6 AM 03/09/21 06:00 Intake Total 2735 ml Output Total 1650 ml Balance 1085 ml Laboratory Data Labs 24H Laboratory Tests 2 03/08/21 10:31: Bedside Glucose (Misc Panel) 107 03/08/21 14:34: Nucleated Red Blood Cells % (auto) 0.0, Prothrombin Time 13.4, Prothromb Time International Ratio 0.98, Anion Gap 5L, Glomerular Filtration Rate > 60.0, Calcium Level 8.7L, Total Bilirubin 0.4, Aspartate Amino Transf (AST/SGOT) 12, Alanine Aminotransferase (ALT/SGPT) 28, Alkaline Phosphatase 74, Total Protein 5.9L, Albumin 3.4, Albumin/Globulin Ratio 1.4 03/09/21 08:45: Nucleated Red Blood Cells % (auto) 0.0 CBC/BMP Laboratory Tests 03/08/21 14:34 03/09/21 08:45 FSBS Laboratory Tests Test 03/08/21 10:31 Range/Units Bedside Glucose (Misc Panel) 107 83-110 MG/DL Discharge Medications Scheduled Allopurinol (Zyloprim) 300 Mg Tablet, 300 MG PO DAILY, (Reported) Ascorbic Acid (Vitamin C) 500 Mg Tablet, 500 MG PO DAILY Aspirin (Aspirin EC) 81 Mg Tab, 81 MG PO BID Budesonide/Formoterol (Symbicort 160-4.5 Mcg Inhaler) 60 Puff/Inhaler Aers, 2 PUFF INH BID, (Reported) Buspirone HCl (Buspirone HCl) 10 Mg Tablet, 10 MG PO BID, (Reported) Docusate Sodium (Colace) 100 Mg Cap, 100 MG PO BID, (Reported) Duloxetine Hcl (Cymbalta) 60 Mg Cap, 60 MG PO DAILY, (Reported) TAKES AT NOON Ezetimibe (Zetia) 10 Mg Tablet, 10 MG PO QHS, (Reported) Ferrous Sulfate (Ferrous Sulfate) 325 Mg Tab, 325 MG PO DAILY, (Reported) TAKES AT NOON Isosorbide Mononitrate (Isosorbide Mononitrate ER) 60 Mg Tab.er.24h, 60 MG PO DAILY, (Reported) @ NOON Lisinopril (Lisinopril) 10 Mg Tablet, 5 MG PO QHS, (Reported) Metformin HCl (Metformin HCl) 500 Mg Tablet, 500 MG PO BID, (Reported) Metoprolol Tartrate (Metoprolol Tartrate) 25 Mg Tab, 25 MG PO BID, (Reported) Mirtazapine (Mirtazapine) 45 Mg Tab.rapdis, 45 MG PO QHS, (Reported) Montelukast Sodium (Montelukast Sodium) 10 Mg Tablet, 10 MG PO DAILY, (Reported) Multivit-Minerals/Folic Acid (Adult Multivitamin Gummies) 1 Chw Chw, 1 TAB PO BID, (Reported) Omeprazole (Omeprazole) 40 Mg Capsule.dr, 40 MG PO DAILY, (Reported) Prazosin HCl (Prazosin HCl) 2 Mg Capsule, 2 MG PO QHS, (Reported) Pregabalin (Lyrica) 150 Mg Capsule, 150 MG PO BID, (Reported) Rosuvastatin Calcium (Rosuvastatin Calcium) 40 Mg Tablet, 40 MG PO DAILY, (Reported) @ 1200 Sucralfate (Carafate) 1 Gm Tab, 1 GM PO TID, (Reported) Tamsulosin HCl (Flomax) 0.4 Mg Cap, 0.4 MG PO DAILY, (Reported) TAKES AT NOON Scheduled PRN Albuterol Sulfate (Ventolin Hfa) 18 Gm Hfa.aer.ad, 2 PUFFS INH QID PRN for SOB/WHEEZING, (Reported) Clonazepam (Clonazepam) 0.5 Mg Tablet, 0.5 MG PO BID PRN for ANXIETY/AGITATION, (Reported) Oxycodone HCl (Oxycodone HCl) 5 Mg Tablet, 1-2 TAB PO Q6HP PRN for PAIN LEVEL 5- 10 Tramadol HCl (Tramadol HCl) 50 Mg Tablet, 50 MG PO Q6H PRN for PAIN, (Reported) Tramadol HCl (Tramadol HCl) 50 Mg Tablet, 50 MG PO Q6HP PRN for MILD PAIN (PS 1- 4) Allergies Coded Allergies: Penicillins (Verified Allergy, Severe, DIFFICULTIES BREATHING, AND FACIAL SWELLING, 04/15/20) propoxyphene (Verified Allergy, Severe, DIFFICULTIES BREATHING, AND FACIAL SWELLING, 04/15/20) hydrocodone (Verified Adverse Reaction, Mild, FLUSHED-REACTION TO "CODONES", 04/27/20) Fiorella Dillard MD Mar 09, 2021 09:30
== END 2021-03-09 13:30 | disposition home health service (06) ==
LOC: M SDC 09:30 → M MS5PR 14:14
PROVIDERS: ADMIT Internal Medicine; ATTEND Orthopaedic Surgery Adult Reconstructive Orthopaedic Surgery
DX: M17.12 Unilateral primary osteoarthritis, left knee (principal); I10 Essential (primary) hypertension; E78.5 Hyperlipidemia, unspecified; F41.9 Anxiety disorder, unspecified; F32.9 Major depressive disorder, single episode, unspecified; J44.9 Chronic obstructive pulmonary disease, unspecified; E66.9 Obesity, unspecified; M05.9 Rheumatoid arthritis with rheumatoid factor, unspecified; I25.10 Atherosclerotic heart disease of native coronary artery without angina pectoris; Z95.1 Presence of aortocoronary bypass graft; G47.33 Obstructive sleep apnea (adult) (pediatric); Z88.0 Allergy status to penicillin; Z88.5 Allergy status to narcotic agent
CPT/HCPCS: 27447; 36415; 73560; 80048; 80053; 85027; 85610; 88304; 88311; 94640; 96365; 96366; 97161; 97165; C1776; G0378; J0171; J1100; J2250; J2370; J3010; J3370

== ENCOUNTER → 2021-03-19 | Outpatient (CLI) | payer OTHER, MEDICARE ==
[~2021-03-19] MED LIST changes: -ACETAMINOPHEN 500 MG TAB PO ONE; +ASCO50TA PO; -LR 1,000 ML IV ONE; +METF500T13 PO; -NAPROXEN 250 MG TAB PO ONE; -NS 1,000 ML IV ONE; +OXYC-517 PO; -PREGABALIN 25 MG CAP (LYRICA) PO ONE; -ROPIVA 125MG/EPINEPH 0.25MG/CLONID 40MCG/KETOR 15MG IN NS 50ML SYRINGE PA ONE; -TRANEXAMIC ACID INJection 1,000 MG in NS 50 ML IV ONE; -dexameTHASONE 4 MG/ML 1ML VIAL (J1100 PER 1MG) IV ONE
--- NOTE | 2021-03-19 11:47 | REP ---
INDICATION: LT TKA. COMPARISON: 03/08/2021 TECHNIQUE: AP, lateral, swimmer's views of the left knee FINDINGS: Satisfactory stable appearance to the joint replacement. Lateral view suggests residual effusion. Otherwise decreased postsurgical changes noted. IMPRESSION: Decreased postsurgical changes. Continue to effusion suggested. <Electronically signed by Masood Bah > 03/19/21 0813
== END ==
LOC: M SOG 09:42
PROVIDERS: ATTEND Orthopaedic Surgery Adult Reconstructive Orthopaedic Surgery
DX: Z96.652 Presence of left artificial knee joint (principal)

== ENCOUNTER → 2021-06-22 | Outpatient (CLI) | payer OTHER ==
[~2021-06-22] MED LIST changes: +ALBU83IN INH; +ALLO10TA PO; +ECOT81TA5 PO; -MONT10TA10 PO; +MONT10TA97 PO; -OMEP-221 PO; +OMEP40CA5 PO
== END ==
LOC: M PLAIMG 14:16
PROVIDERS: ATTEND Orthopaedic Surgery Adult Reconstructive Orthopaedic Surgery
DX: M17.11 Unilateral primary osteoarthritis, right knee (principal)

== ENCOUNTER → 2021-07-01 | Outpatient (CLI) | payer OTHER | LOC: M LABSMTC 09:32 | PROVIDERS: ATTEND Anesthesiology | DX: Z01.812 Encounter for preprocedural laboratory examination (principal); Z20.822 Contact with and (suspected) exposure to COVID-19 ==

== ENCOUNTER 2021-07-06 06:21 | Inpatient (IN) | payer OTHER ==
[~2021-07-06] VITALS: Ht 175.3 cm; Wt 96.2 kg
[2021-07-06] VITALS (7 sets, daily range): BP systolic 111–127; BP diastolic 68–76
[~2021-07-06 06:21] MED LIST changes: +LR 1,000 ML IV ONE
[2021-07-06] MEDS ORDERED: ROPIVA 125MG/EPINEPH 0.25MG/CLONID 40MCG/KETOR 15MG IN NS 50ML SYRINGE PA ONE (07:00)
[2021-07-06] MEDS ORDERED: TRANEXAMIC ACID 100 MG/ML 10ML VIAL As Ordered ONE (07:06)
[2021-07-06] MEDS ORDERED: VANCOMYCIN 1000MG/20ML VIAL As Ordered ONE (07:13)
[2021-07-06] MEDS ORDERED: dexameTHASONE 4 MG/ML 1ML VIAL (J1100 PER 1MG) IV ONE (07:35)
[2021-07-06] MEDS ORDERED: NS 1,000 ML IV ONE (07:35)
[2021-07-06] MEDS ORDERED: ACETAMINOPHEN 500 MG TAB PO ONE (07:35)
[2021-07-06] MEDS ORDERED: NAPROXEN 250 MG TAB PO ONE (07:35)
[2021-07-06] MEDS ORDERED: TRANEXAMIC ACID INJection 1,000 MG in NS 60 ML IV ONE (07:35)
[2021-07-06] MEDS ORDERED: VANCOMYCIN HCL 1,000 MG, VIAL MATE ADAPTER 1 EACH in NS 250 ML IV ONE (07:40)
[2021-07-06] MEDS ORDERED: SEVOFLURANE INHAL SOLN 250 ML BTL As Ordered ONE (08:12)
[2021-07-06] MEDS ORDERED: DESFLURANE 240 ML INHALANT As Ordered ONE (08:12)
[2021-07-06] MEDS ORDERED: dexameTHASONE 4 MG/ML 1ML VIAL (J1100 PER 1MG) As Ordered ONE (08:12)
[2021-07-06] MEDS ORDERED: propofoL 200 MG/20 ML VIAL As Ordered ONE ×4 (08:12→10:12)
[2021-07-06] MEDS ORDERED: fentaNYL 100 MCG/2 ML INJECTION As Ordered ONE (08:12)
[2021-07-06] MEDS ORDERED: MIDAZOLAM INJ 2MG/2ML VIAL (J2250 PER 1MG) As Ordered ONE (08:12)
[2021-07-06] MEDS ORDERED: ePHEDrine SULFATE 25 MG/5 ML(5MG/ML) SYRINGE As Ordered ONE (08:12)
[2021-07-06] MEDS ORDERED: METOCLOPRAMIDE INJ 10MG/2ML VIAL (J2765 PER 1) As Ordered ONE (08:12)
[2021-07-06] MEDS ORDERED: PHENYLephrine 500MCG 5ML (100MCG/ML) SYRINGE As Ordered ONE (08:12)
[2021-07-06] MEDS ORDERED: LIDOCAINE 2% 100MG/5ML SDV (FOR ANES.) As Ordered ONE (08:12)
[2021-07-06] MEDS ORDERED: ONDANSETRON 4MG/2ML VIAL As Ordered ONE (08:12)
[2021-07-06] MEDS ORDERED: PHENYLEPHRINE 10MG/ML 1ML VIAL (J2370 PER 1) As Ordered ONE (08:18)
[2021-07-06] MEDS ORDERED: diphenhydrAMINE 50MG/ML VIAL (J1200) As Ordered ONE (09:29)
[2021-07-06] MEDS ORDERED: KETAMINE HCL 200 MG/20 ML VIAL As Ordered ONE (09:42)
[2021-07-06] MEDS ORDERED: oxyCODONE 5MG TAB PO PRN (11:10)
[2021-07-06] MEDS ORDERED: LR 1,000 ML IV SCH ×2 (11:10→11:20)
[2021-07-06] MEDS ORDERED: ONDANSETRON 4MG/2ML VIAL IV PRN ×3 (11:10→11:20)
[2021-07-06] MEDS ORDERED: fentaNYL 100 MCG/2 ML INJECTION IV PRN (11:10)
[2021-07-06] MEDS ORDERED: traMADol 50 MG TAB PO PRN (11:15)
[2021-07-06] MEDS ORDERED: SENNA 8.6 MG TAB (SENOKOT) PO PRN (11:15)
[2021-07-06] MEDS ORDERED: NAPROXEN 250 MG TAB PO SCH (12:00)
[2021-07-06] MEDS ORDERED: clonazePAM 0.5 MG TAB PO PRN (12:10)
[2021-07-06] MEDS ORDERED: DEXTROSE 50% 50 ML SYRINGE IV PRN (12:10)
[2021-07-06] MEDS ORDERED: GLUCOSE 4GM CHEW TABLET PO PRN (12:10)
[2021-07-06] MEDS ORDERED: GLUCAGON INJ 1MG VIAL SC PRN (12:10)
[2021-07-06 12:18] LABS: INR 0.84; PROTHROMBIN TIME 11.9 SECONDS (12.7-14.5)
[2021-07-06 12:32] LABS: BLOOD UREA NITROGEN 14 MG/DL (7-18); CALCIUM LEVEL 8.8 MG/DL (8.8-10.2); CARBON DIOXIDE LEVEL 28 MEQ/L (21-32); CHLORIDE LEVEL 109 MEQ/L (98-107); CREATININE FOR GFR 0.94 MG/DL (0.70-1.30); GLOMERULAR FILTRATION RATE > 60.0 (>42); GLUCOSE, FASTING 138 MG/DL (70-100); POTASSIUM SERUM 4.1 MEQ/L (3.5-5.1); SODIUM LEVEL 142 MEQ/L (136-145)
[2021-07-06 13:08] LABS: HEMOGLOBIN 12.5 g/dl (13.5-17.5); MEAN CORPUSCULAR HEMOGLOBIN 26.3 pg (27.0-33.0); MEAN CORPUSCULAR HGB CONC 31.3 g/dl (32.0-36.5); MEAN CORPUSCULAR VOLUME 84.2 fl (80.0-96.0); PLATELET COUNT, AUTOMATED 189 10^3/uL (150-450); RED BLOOD COUNT 4.75 10^6/uL (4.30-6.10); WHITE BLOOD COUNT 7.7 10^3/uL (4.0-10.0)
[2021-07-06] MEDS: TAMSULOSIN 0.4 MG CAP PO SCH (14:00)
[2021-07-06] MEDS: ROSUVASTATIN 10 MG TAB (CRESTOR) PO SCH (14:00)
[2021-07-06] MEDS: DULoxetine 30MG CAPSULE (CYMBALTA) PO SCH (14:00)
[2021-07-06] MEDS: ISOSORBIDE MON. (IMDUR) 60 MG XR TAB PO SCH (14:00)
[2021-07-06] MEDS: ACETAMINOPHEN TAB 650MG DOSE (2X325MG) PO SCH ×3 (14:01→22:22)
[2021-07-06 16:10] LABS: HEPATITIS B SURFACE ANTIGEN NEGATIVE (NEGATIVE); HIV SCREEN CENTAUR SOURCE NEGATIVE (NEGATIVE)
[2021-07-06] MEDS: SUCRALFATE 1 GM TAB PO SCH ×2 (16:53→20:24)
[2021-07-06] MEDS: HumaLOG INSULIN (NovoLOG) PER UNIT SC SCH (16:54)
[2021-07-06] MEDS: SYMBICORT 160/4.5MCG INHALER 6GM INH SCH (19:58)
[2021-07-06] MEDS: VANCOMYCIN HCL 1,000 MG, VIAL MATE ADAPTER 1 EACH in NS 250 ML IV SCH (20:19)
[2021-07-06] MEDS: DOCUSATE SODIUM 100MG CAPSULE PO SCH (20:24)
[2021-07-06] MEDS: PREGABALIN 75 MG CAP(LYRICA) PO SCH (20:24)
[2021-07-06] MEDS: ASPIRIN 81MG ENTERIC TABLET PO SCH (20:24)
[2021-07-06] MEDS: busPIRone 10 MG TAB PO SCH (20:24)
[2021-07-06] MEDS: NAPROXEN 250 MG TAB PO SCH (20:25)
[2021-07-06] MEDS: METOPROLOL TART 25 MG TABLET PO SCH (20:25)
[2021-07-06] MEDS ORDERED: PRAZOSIN 1 MG CAP PO SCH (21:00)
[2021-07-06] MEDS ORDERED: EZETIMIBE 10MG TABLET (ZETIA) PO SCH (21:00)
[2021-07-06] MEDS ORDERED: MIRTAZAPINE 15 MG TAB PO SCH (21:00)
[2021-07-06] MEDS ORDERED: lisinopriL 5 MG TAB PO SCH (21:00)
[2021-07-07 02:00] VITALS: BP 123/71
[2021-07-07] MEDS: ACETAMINOPHEN TAB 650MG DOSE (2X325MG) PO SCH ×2 (05:08→12:18)
[2021-07-07 06:25] LABS: HEMATOCRIT 32.7 % (42.0-52.0); MEAN CORPUSCULAR HEMOGLOBIN 25.8 pg (27.0-33.0); MEAN CORPUSCULAR HGB CONC 30.9 g/dl (32.0-36.5); MEAN CORPUSCULAR VOLUME 83.6 fl (80.0-96.0); PLATELET COUNT, AUTOMATED 180 10^3/uL (150-450); RED BLOOD COUNT 3.91 10^6/uL (4.30-6.10)
[2021-07-07 06:33] LABS: HEMOGLOBIN 10.1 g/dl (13.5-17.5)
[2021-07-07 06:45] LABS: BLOOD UREA NITROGEN 18 MG/DL (7-18); CALCIUM LEVEL 8.6 MG/DL (8.8-10.2); CARBON DIOXIDE LEVEL 27 MEQ/L (21-32); CHLORIDE LEVEL 111 MEQ/L (98-107); CREATININE FOR GFR 0.96 MG/DL (0.70-1.30); GLOMERULAR FILTRATION RATE > 60.0 (>42); GLUCOSE, FASTING 120 MG/DL (70-100); POTASSIUM SERUM 4.4 MEQ/L (3.5-5.1); SODIUM LEVEL 143 MEQ/L (136-145)
[2021-07-07] MEDS: SYMBICORT 160/4.5MCG INHALER 6GM INH SCH (07:09)
[2021-07-07] MEDS: VANCOMYCIN HCL 1,000 MG, VIAL MATE ADAPTER 1 EACH in NS 250 ML IV SCH (08:08)
[2021-07-07] MEDS: HumaLOG INSULIN (NovoLOG) PER UNIT SC SCH ×2 (08:08→12:00)
[2021-07-07] MEDS: DOCUSATE SODIUM 100MG CAPSULE PO SCH (08:09)
[2021-07-07] MEDS: busPIRone 10 MG TAB PO SCH (08:09)
[2021-07-07] MEDS: ASPIRIN 81MG ENTERIC TABLET PO SCH (08:09)
[2021-07-07] MEDS: SUCRALFATE 1 GM TAB PO SCH (08:09)
[2021-07-07] MEDS: PREGABALIN 75 MG CAP(LYRICA) PO SCH (08:09)
[2021-07-07] MEDS: METOPROLOL TART 25 MG TABLET PO SCH (08:09)
[2021-07-07] MEDS: NAPROXEN 250 MG TAB PO SCH (08:10)
[2021-07-07] MEDS ORDERED: FERROUS SULFATE 325MG TAB PO SCH (09:00)
[2021-07-07] MEDS ORDERED: OMEPRAZOLE 20MG CAP PO SCH (09:00)
[2021-07-07] MEDS ORDERED: MONTELUKAST 10 MG TAB PO SCH (09:00)
[2021-07-07] MEDS ORDERED: ASCORBIC ACID 500 MG TAB PO SCH (09:00)
[2021-07-07 09:16] LABS: NT-PRO BNP 89 PG/ML (<125)
[2021-07-07] MEDS: ROSUVASTATIN 10 MG TAB (CRESTOR) PO SCH (12:17)
[2021-07-07] MEDS: TAMSULOSIN 0.4 MG CAP PO SCH (12:17)
[2021-07-07] MEDS: DULoxetine 30MG CAPSULE (CYMBALTA) PO SCH (12:17)
[2021-07-07 12:18] VITALS: BP 123/71
[2021-07-07] MEDS: ISOSORBIDE MON. (IMDUR) 60 MG XR TAB PO SCH (12:18)
[2021-07-07] MEDS ORDERED: SENN18TA PO (13:29)
[2021-07-07] MEDS ORDERED: ASPI-551 PO (13:29)
[2021-07-07] MEDS ORDERED: TRAM50TA2 PO (13:29)
[2021-07-07] MEDS ORDERED: ACET1TAB55 PO (13:29)
[2021-07-07] MEDS ORDERED: NAPR-849 PO (13:29)
[2021-07-07 14:00] VITALS: BP 105/57
== END 2021-07-07 14:40 | disposition home or self-care (01) | DRG 470 ==
LOC: M SDC 06:21 → M MS5PR 11:46
PROVIDERS: ADMIT Internal Medicine; ATTEND Internal Medicine
PROC: 0SRC0JA Replacement of Right Knee Joint with Synthetic Substitute, Uncemented, Open Approach (ICD-10-PCS; principal; 2021-07-06 07:30)
DX: M17.11 Unilateral primary osteoarthritis, right knee (principal); J44.9 Chronic obstructive pulmonary disease, unspecified; I25.10 Atherosclerotic heart disease of native coronary artery without angina pectoris; E78.5 Hyperlipidemia, unspecified; I10 Essential (primary) hypertension; Z95.1 Presence of aortocoronary bypass graft; M06.9 Rheumatoid arthritis, unspecified; G47.33 Obstructive sleep apnea (adult) (pediatric); R73.03 Prediabetes; Z85.038 Personal history of other malignant neoplasm of large intestine; F43.10 Post-traumatic stress disorder, unspecified; F41.9 Anxiety disorder, unspecified; Z79.82 Long term (current) use of aspirin; Z79.899 Other long term (current) drug therapy; Z88.0 Allergy status to penicillin; Z88.5 Allergy status to narcotic agent; Z88.8 Allergy status to other drugs, medicaments and biological substances

== ENCOUNTER → 2021-07-21 | Outpatient (CLI) | payer OTHER ==
[~2021-07-21] MED LIST changes: +ACET1TAB55 PO; +ASPI-551 PO; -LR 1,000 ML IV ONE; +NAPR-849 PO; +SENN18TA PO
== END ==
LOC: M SOG 09:28
PROVIDERS: ATTEND Orthopaedic Surgery Adult Reconstructive Orthopaedic Surgery
DX: Z47.1 Aftercare following joint replacement surgery (principal); Z96.651 Presence of right artificial knee joint

== ENCOUNTER → 2021-08-02 | Outpatient (CLI) | payer OTHER | LOC: M SOG 10:46 | PROVIDERS: ATTEND Orthopaedic Surgery Adult Reconstructive Orthopaedic Surgery | DX: Z96.651 Presence of right artificial knee joint (principal) ==

== ENCOUNTER → 2021-10-13 | Outpatient (CLI) | payer OTHER ==
[~2021-10-13] MED LIST changes: +ALBU2.5V10 INH; -ALBU83IN INH
== END ==
LOC: M LABSMTC 09:24
PROVIDERS: ATTEND Anesthesiology
DX: Z01.818 Encounter for other preprocedural examination (principal); Z11.52 Encounter for screening for COVID-19

== ENCOUNTER 2021-10-18 10:43 | Day surgery (SDC) | payer OTHER ==
[~2021-10-18] VITALS: Ht 175.3 cm; Wt 108.1 kg
[~2021-10-18 10:43] MED LIST changes: +NS 1,000 ML IV ONE
[2021-10-18] MEDS ORDERED: LIDOCAINE 2% 100MG/5ML SDV (FOR ANES.) As Ordered ONE (11:50)
[2021-10-18] MEDS ORDERED: propofoL 200 MG/20 ML VIAL As Ordered ONE (11:50)
[2021-10-18 12:38] VITALS: BP 138/70
== END 2021-10-18 12:37 | disposition home or self-care (01) ==
LOC: M OPP 10:43
PROVIDERS: ATTEND Internal Medicine Gastroenterology
DX: Z85.038 Personal history of other malignant neoplasm of large intestine (principal); Z08 Encounter for follow-up examination after completed treatment for malignant neoplasm; K57.30 Diverticulosis of large intestine without perforation or abscess without bleeding; K64.0 First degree hemorrhoids; Z98.0 Intestinal bypass and anastomosis status; Z79.01 Long term (current) use of anticoagulants; Z79.2 Long term (current) use of antibiotics; Z79.51 Long term (current) use of inhaled steroids; Z79.52 Long term (current) use of systemic steroids; Z79.82 Long term (current) use of aspirin; Z79.891 Long term (current) use of opiate analgesic; Z79.899 Other long term (current) drug therapy; Z88.0 Allergy status to penicillin; Z88.5 Allergy status to narcotic agent; Z88.8 Allergy status to other drugs, medicaments and biological substances

== ENCOUNTER → 2021-12-02 | Outpatient (REF) ==
[~2021-12-02] MED LIST changes: -NS 1,000 ML IV ONE
== END ==
LOC: M PLARAD 10:40 → M PLAIMG 10:40
PROVIDERS: ATTEND Internal Medicine
DX: R52 Pain, unspecified (principal)

== ENCOUNTER → 2022-04-07 | Outpatient (CLI) | payer OTHER ==
[~2022-04-07] MED LIST changes: +CLOP75TA99 PO; -PLAV1TAB2 PO
== END ==
LOC: M SOG 08:27
PROVIDERS: ATTEND Orthopaedic Surgery Adult Reconstructive Orthopaedic Surgery
DX: Z96.653 Presence of artificial knee joint, bilateral (principal); Z53.9 Procedure and treatment not carried out, unspecified reason

== ENCOUNTER → 2022-05-04 | Outpatient (CLI) | payer OTHER | LOC: M SOG 07:53 | PROVIDERS: ATTEND Orthopaedic Surgery Adult Reconstructive Orthopaedic Surgery | DX: Z48.89 Encounter for other specified surgical aftercare (principal); Z96.653 Presence of artificial knee joint, bilateral ==